=== PATIENT | female | born 1990 | race Caucasian/White ===

== ENCOUNTER 2020-07-04 21:56 | Emergency (ER) | payer MEDICAID, SELFPAY ==
[2020-07-04 23:02] VITALS: BP 171/94; PULSE 88; RESP 18; TEMP 36.6; O2SAT 100; BMI 36.0
[2020-07-04 23:26] VITALS: BP 155/75; PULSE 74; RESP 16; O2SAT 98
--- NOTE | 2020-07-04 23:35 | ED_ITS ---
History of Present Illness General Chief Complaint: Epistaxis Stated Complaint: nose bleed for 30 mins Time Seen by Provider: 07/04/20 23:26 Source: patient Mode of arrival: ambulatory Limitations: no limitations History of Present Illness HPI Narrative: L nares bleeding since 830pm wouldn't stop, no trauma, has hx of bleeding issues she was told she was hemophiliac but doesn't know her factor deficiency and hasn't received factor replacement in the past or during childbirth Location: Yes left naris Onset/current episode: Yes hour(s) (830pm) Duration: Yes intermittent Pertinent past history: Yes history of previous nose bleed and Yes history of heriditary bleeding disorder Context: Yes history of previous nose bleed Treatment prior to arrival: Yes nose pinching and Yes stuff nose with tissue Related Data Allergies Allergy/AdvReac Type Severity Reaction Status Date / Time aspirin AdvReac Unknown RASH Verified 07/04/20 23:02 [From ASPIRIN REGIMEN GARRETT/CALCIUM] Review of Systems Review of Systems: Constitutional : No Fever, No Chills ENT/Mouth : No Ear Pain, No Nasal Congestion, positive nose bleed Eyes: No Eye Pain, No Swelling, No Redness Cardiovascular : No Chest Pain, No SOB Respiratory : No Cough, No Sputum Gastrointestinal : No Nausea, No Vomiting, No Diarrhea Genitourinary : No Dysuria, No Hematuria Musculoskeletal : No joint pain, No Myalgias Skin : No Skin Lesions, No rash Neuro : No Weakness, No Numbness, No headache Psych : No Anxiety/Panic, No Depression Heme/Lymph: positive Bleeding,No Lymphadenopathy Endocrine : No Polyuria, No Polydipsia PMFSH Past Medical History Attestation statement: The following information was validated with the patient. Medical History (Updated 07/05/20 @ 00:29 by Ellen Unger DO) Asthma Hermansky-Pudlak syndrome Legally blind Social History Social History (Updated 07/04/20 @ 23:38 by Ellen Unger DO) Smoking Status: Never smoker Advance Directives: No Physical Exam Vital Signs: Vital Signs: Last Vital Signs Temp 97.9 F 07/04/20 23:02 Pulse 74 07/04/20 23:26 Resp 16 07/04/20 23:26 BP 155/75 H 07/04/20 23:26 Pulse Ox 98 07/04/20 23:26 Body Mass Index 36.0 Appearance: Alert. Oriented X3. No acute distress. Eyes: Pupils equal, round and reactive to light. ENT: Pharynx normal. no blood in pharynx, dried blood removed with clot of L nare no active bleeding noted but cracked area on anterior septum Neck: Normal inspection. Neck supple. CVS: Normal heart rate and rhythm. Pulses normal. Respiratory: No respiratory distress. Breath sounds normal. Abdomen: Soft and nontender. Skin: Skin warm and dry. Normal skin color. Normal skin turgor. Extremities: No lower extremity edema. No calf ttp Neuro: Oriented X 3. No motor deficit. No sensory deficit. Course Course Course Narrative: records from [facility] requested at the time of her delivery to confirm if she is hemophiliac - patient is not hemophiliac on recheck very scant ooze from anterior septum will apply silver nitrate to cau theodora Procedures Epistaxis Control Time Out Performed: Yes Nostril: Yes right Nose prepped with: Yes oxymetazoline Direct inspection: Yes anterior source identified Direct inspection method: Yes nasal speculum Clots removed by: Yes suction and Yes manually Epistaxis treatment: Yes silver nitrate cautery Results of treatment: Yes bleeding controlled Complications: Yes none MDM - Epistaxis MDM Narrative Medical decision making narrative: 29 yo female hermansky-pudlak syndrome and hx of bleeding, she initially stated she was hemophiliac but she doesn't know her factor deficiency and she has never received a factor replacement even during childbirth review of her notes here describe 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, will need labs, observation, apply afrin currently no bleeding noted Lab Data Result diagrams: 07/04/20 23:53 07/04/20 23:53 Labs: Lab Results 07/04/20 07/04/20 Range/Units 23:53 23:53 WBC 9.1 (4.8-10.8) X10*3/uL RBC 5.28 (4.20-5.50) X10*6/uL Hgb 14.5 (12.0-16.0) g/dl Hct 44.9 (37-47) % MCV 85.0 (80-98) fL MCH 27.5 (27.0-33.0) pg MCHC 32.3 (31.0-35.0) g/dl RDW 13.0 (11.0-16.0) % Plt Count 222 (160-400) X10*3/uL MPV 10.3 (9.4-12.3) fL Immature Gran % (Auto) 0.8 H (0.0-0.4) % Neut % (Auto) 50.7 (45-73) % Lymph % (Auto) 41.4 H (20-40) % [place] % (Auto) 5.8 (2-11) % Eos % (Auto) 1.0 (0-4) % Baso % (Auto) 0.3 (0-2) % Lymph # (Auto) 3.8 (1.2-4.9) X10*3/uL [place] # (Auto) 0.5 (0.1-1.2) X10*3/uL Eos # (Auto) 0.1 (0.0-0.4) X10*3/uL Baso # (Auto) 0.0 (0.0-0.2) X10*3/uL Abs Immat Gran (auto) 0.07 H (0.00-0.03) X10*3/uL Absolute Neuts (auto) 4.6 (2.0-8.3) X10*3/uL Absolute Nucleated RBC 0.000 (0.0-0.012) X10*3/uL Nucleated RBC % (auto) 0.0 (0.0-0.2) /100WBC PT 11.1 (10.8-13.0) SEC INR 0.9 (0.9-1.1) Discharge Plan Discharge Clinical Impression: Epistaxis Patient Disposition: Home, Self-Care Instructions: Nosebleed (ED), Potassium Nitrate/Silver Nitrate (On the skin) Additional Instructions: return to ED for any worsening symptoms or concerns DO NOT PICK YOUR NOSE OR BLOW YOUR NOSE X 3 DAYS Referrals: Geraldine Reyes MD [Primary Care Provider] - 2 days (if not better)
[2020-07-04] MEDS: Oxymetazoline HCl 0.05 % Nasal 15 ML SPRAY 2 SPRAY NOSTRIL-B (23:46)
[2020-07-05 00:02] LABS: Basophils Percent Auto 0.3 % (0-2); Eosinophils Absolute Auto 0.1 X10*3/uL (0.0-0.4); Hematocrit 44.9 % (37-47); Hemoglobin 14.5 g/dl (12.0-16.0); Imm Gran Abs Auto 0.07 X10*3/uL (0.00-0.03); Imm Gran Pct Auto 0.8 % (0.0-0.4); Lymphocytes Absolute Auto 3.8 X10*3/uL (1.2-4.9); Lymphocytes Percent Auto 41.4 % (20-40); MANUAL DIFF FLAG NO; Mean Corpuscular HGB Conc 32.3 g/dl (31.0-35.0); Mean Corpuscular Hemoglobin 27.5 pg (27.0-33.0); Mean Platelet Volume 10.3 fL (9.4-12.3); Monocytes Absolute Auto 0.5 X10*3/uL (0.1-1.2); Monocytes Percent Auto 5.8 % (2-11); Neutrophils Absolute Auto 4.6 X10*3/uL (2.0-8.3); Neutrophils Percent Auto 50.7 % (45-73); Platelet Count 222 X10*3/uL (160-400); Red Blood Count 5.28 X10*6/uL (4.20-5.50); White Blood Count 9.1 X10*3/uL (4.8-10.8)
[2020-07-05 00:10] LABS: INTERNATIONAL NORM RATIO 0.9 (0.9-1.1); Prothrombin Time 11.1 SEC (10.8-13.0)
[2020-07-05] MEDS: Silver Nitrate Applicator STICK..EA. 1 APPL TOPICAL (00:26)
[2020-07-05 00:30] LABS: Anion Gap 12 (12-20); Blood Urea Nitrogen 11 mg/dL (9-16); Carbon Dioxide 27 mmol/L (22-29); Chloride 106 mmol/L (96-108); Creatinine Clr Calc Pharmacy 119.7; Estimated Glomerular Filt Rate > 60; Glucose Random 111 mg/dL (60-115); Potassium 4.2 mmol/L (3.3-5.1); Sodium 141 mmol/L (135-145)
--- NOTE | 2020-07-05 00:30 | PC.NURSE ---
LEFT NARE CAUTERIZED BY DR HUI. NO FURTHER BLEEDING AT THIS TIME. WILL MONITOR.
[2020-07-05 00:51] VITALS: BP 139/82; PULSE 65; RESP 18; O2SAT 98
== END 2020-07-05 01:10 | disposition home or self-care (01) ==
PROVIDERS: Emergency Provider Emergency Medicine; PCP Internal Medicine
DX: R04.0 Epistaxis (principal); E70.331 Hermansky-Pudlak syndrome; J45.909 Unspecified asthma, uncomplicated
CPT/HCPCS: 36415; 80048; 85025; 85610; 99284

== ENCOUNTER 2020-11-19 21:36 | Emergency (ER) | payer MEDICAID, SELFPAY ==
[2020-11-19 22:02] VITALS: BP 151/105; PULSE 90; RESP 18; TEMP 37.1; O2SAT 98; BMI 39.3
--- NOTE | 2020-11-19 22:17 | ED_ITS ---
HPI - General Adult General Chief complaint: General Medical Stated complaint: sensation of ants Time Seen by Provider: 11/19/20 22:12 Source: patient Mode of arrival: ambulatory Limitations: no limitations History of Present Illness HPI narrative: hx of same in the past MD complaint: burning sensation on skin Onset (ago): day(s) (1 day) Location: head, face, chest, back, upper extremity and lower extremity Radiation: non-radiation Severity: moderate Quality: other (feels ants are crawling on her) Relieving factors: none Exacerbating factors: none Associated symptoms: denies other symptoms Treatments prior to arrival: none Related Data Previous Rx's Medication Instructions Recorded hydroxyzine HCl 50 mg PO Q8H PRN #30 tab 11/19/20 lorazepam [Ativan] 0.5 mg PO BID PRN #10 tab 11/19/20 Allergies Allergy/AdvReac Type Severity Reaction Status Date / Time aspirin AdvReac Unknown RASH Verified 11/19/20 22:02 [From ASPIRIN REGIMEN GARRETT/CALCIUM] Review of Systems Review of Systems: Constitutional : No Fever, No Chills, Cardiovascular : No Chest Pain, No SOB Respiratory : No Dyspnea Gastrointestinal : No abdominal pain Musculoskeletal : No Joint Swelling Skin : No rash, no skin laceration Neuro : No Weakness, No Numbness Psych : No SI/HI PMFSH Past Medical History Attestation statement: The following information was validated with the patient. Medical History Asthma Hermansky-Pudlak syndrome Legally blind Social History Social History (Updated 11/19/20 @ 22:28 by Ellen Unger DO) Patient Tobacco Use Status: Never used Tobacco Use of substances other than those prescribed or required for medical reasons: No Advance Directives: No Patient : No Physical Exam Vital Signs: Vital Signs: Last Vital Signs Temp 98.7 F 11/19/20 22:02 Pulse 90 11/19/20 22:02 Resp 18 11/19/20 22:02 BP 151/105 H 11/19/20 22:02 Pulse Ox 98 11/19/20 22:02 Body Mass Index 39.3 Appearance: Alert. Oriented X3. No acute distress. Eyes: nystagmus noted ENT: Pharynx normal. Neck: Normal inspection. Neck supple. CVS: Normal heart rate and rhythm. Pulses normal. Respiratory: No respiratory distress. Breath sounds normal. Abdomen: Soft and non-tender. Skin: Skin warm and dry. Normal skin color. Normal skin turgor. no rash Extremities: No lower extremity edema. No calf ttp Neuro: Oriented X 3. No motor deficit. No sensory deficit. Course Course Course Narrative: multiple rounds of medications including atarax, prednisone and ativan, patient with some relief, stable for DC. Medical Decision Making MDM Narrative Medical decision making narrative: 29 yo female with hx of asthma, hermansky- pudlak syndrome, legally blind here with feeling her skin is on fire, no rash seen, no drugs, no other symptoms has had this in the past and usually responds to benadryl but she didn't take any as it seemed much worse at this time, doubt drug use, no signs of rash no other complaints, GCS 15 will give atarax and reassess Discharge Plan Discharge Clinical Impression: Formication Patient Disposition: Home, Self-Care Instructions: Itchy Skin (ED) Additional Instructions: return to ED for any worsening symptoms or concerns Prescriptions: New hydroxyzine HCl 50 mg tablet 50 mg PO Q8H PRN (Reason: itching) Qty: 30 RF: 0 lorazepam [Ativan] 0.5 mg tablet 0.5 mg PO BID PRN (Reason: anxiety) Qty: 10 RF: 0 Referrals: Geraldine Reyes MD [Primary Care Provider] - 2 days
[2020-11-19] MEDS: hydrOXYzine HCL 50 MG TABLET PO (22:31)
[2020-11-19] MEDS: LORazepam 0.5 MG TABLET PO (23:11)
[2020-11-19] MEDS: predniSONE 20 MG TABLET 60 MG PO (23:51)
[2020-11-20] MEDS: LORazepam 1 MG TABLET PO (01:06)
--- NOTE | 2020-11-20 02:54 | PC.NURSE ---
ATTEMPTING TO GRAB THE PATIENT TO COME BACK TO A ROOM, PATIENT IS AT THE VENDING MACHINE, DIGGING COINS FROM THE CHANGE DISPENSER, THROWING THEM ONTO THE GROUND, AND KICKING THEM INTO THE BATHROOM TO PICK THEM UP. THIS NURSE CALLING HIS NAME AND THIS PATIENT RESPONDING. PATIENT UPSET AND YELLING AT THIS RN IN [place] FOR NOT FOLLOWING HIM INTO THE BATHROOM TO HEATING TECHNICIAN THE DROPPED CHANGE FOR HIM. PATIENT SITTING BACK DOWN IN THE WAITING ROOM AND CHARGING HIS PHONE. CHOOSING TO IGNORE THIS RN. ATTEMPTED TO CALL HIS NAME AGAIN AND ASK IF HE WANTS TO BE SEEN, PATIENT HUFFED AND WAVED THIS RN AWAY.
== END 2020-11-20 01:44 | disposition home or self-care (01) ==
PROVIDERS: Emergency Provider Emergency Medicine; PCP Internal Medicine
DX: R20.2 Paresthesia of skin (principal); E70.331 Hermansky-Pudlak syndrome
CPT/HCPCS: 99283

== ENCOUNTER 2020-12-13 11:42 | Outpatient (REF) | payer MEDICAID, SELFPAY ==
[2020-12-13 12:41] LABS: MANUAL DIFF FLAG NO
[2020-12-13 12:57] LABS: Basophils Percent Auto 0.3 % (0-2); Eosinophils Absolute Auto 0.1 X10*3/uL (0.0-0.4); Eosinophils Percent Auto 1.7 % (0-4); Hematocrit 48.3 % (37-47); Hemoglobin 15.7 g/dl (12.0-16.0); Imm Gran Abs Auto 0.03 X10*3/uL (0.00-0.03); Imm Gran Pct Auto 0.4 % (0.0-0.4); Lymphocytes Percent Auto 39.2 % (20-40); Mean Corpuscular HGB Conc 32.5 g/dl (31.0-35.0); Mean Corpuscular Hemoglobin 27.6 pg (27.0-33.0); Mean Corpuscular Volume 84.9 fL (80-98); Mean Platelet Volume 10.4 fL (9.4-12.3); Monocytes Absolute Auto 0.4 X10*3/uL (0.1-1.2); Monocytes Percent Auto 5.7 % (2-11); Neutrophils Percent Auto 52.7 % (45-73); Platelet Count 246 X10*3/uL (160-400); Red Blood Count 5.69 X10*6/uL (4.20-5.50); Red Cell Distribution Width 13.3 % (11.0-16.0); White Blood Count 7.6 X10*3/uL (4.8-10.8)
[2020-12-13 13:10] LABS: Alanine Aminotransferase 17 U/L (0-31); Albumin Level 4.2 g/dL (3.5-5.0); Alkaline Phosphatase 83 U/L (39-117); Anion Gap 13 (12-20); Aspartate Amino Transferase 16 U/L (5-31); Bilirubin Total 0.4 mg/dL (0.0-1.0); Blood Urea Nitrogen 8 mg/dL (9-16); Calcium 9.1 mg/dL (8.4-10.2); Carbon Dioxide 24 mmol/L (22-29); Chloride 109 mmol/L (96-108); Estimated Glomerular Filt Rate > 60; Glucose Random 97 mg/dL (60-115); Potassium 3.5 mmol/L (3.3-5.1); Sodium 142 mmol/L (135-145); Total Protein 7.7 g/dL (6.5-8.0)
[2020-12-13 13:31] LABS: Thyroid Stimulating Hormone 1.96 uIU/mL (0.32-4.0)
== END 2020-12-13 11:43 | disposition home or self-care (01) ==
LOC: HO.LAB 11:42
PROVIDERS: PCP Internal Medicine; Visit Provider Internal Medicine
DX: E70.331 Hermansky-Pudlak syndrome (principal); F33.42 Major depressive disorder, recurrent, in full remission; L29.8 Other pruritus
CPT/HCPCS: 36415; 80053; 84443; 85025

== ENCOUNTER → 2021-04-10 09:52 | Outpatient (BNVA) | payer MEDICAID, SELFPAY | PROVIDERS: PCP Internal Medicine; Referring Provider Internal Medicine; Visit Provider Surgery | DX: L72.9 Follicular cyst of the skin and subcutaneous tissue, unspecified (principal) | CPT/HCPCS: 99202 ==

== ENCOUNTER 2021-05-01 07:53 | Outpatient (REF) | payer MEDICAID, SELFPAY ==
[2021-05-01 08:04] VITALS: BP 160/86; PULSE 67; RESP 20; TEMP 36.4; O2SAT 100
[2021-05-01 08:05] VITALS: BMI 42.2
--- NOTE | 2021-05-01 08:24 | W.PM.OPN ---
Operative Note Operative Note Date of Service: 05/01/21 Narrative: Preop diagnosis: scalp cyst Postop diagnosis: Scalp cyst Procedure: Excision of scalp cyst under local anesthesia Surgeon: Reji Short MD The patient is a 30-year-old female with note of a up cyst, measuring about 1 cm in diameter. This was on the frontoparietal area. She wanted this removed. She understood the technique of excision under local anesthesia. She was aware of the risks, benefits, and alternatives . She was brought to the minor procedure room and placed supine in a reclined position. The area of the cyst was prepped and draped. Lidocaine 1% was used for local anesthesia. Surgical time-out had been done . I made an incision in the skin overlying the cyst using blade 15. And this was carried down through the full-thickness of skin and part of subcutaneous layer until the mass was visualized. I sharply dissected the mass off of the rest of subcutaneous layer circumferentially until this was delivered and sent as a specimen. This was a surgical thick mass measuring about 1 cm in diameter . I closed the incision with full-thickness nylon 3-0 interrupted sutures. bacitracin dressings were applied. The procedure was then completed . The patient tolerated procedure well. There were no complications noted. Estimated blood loss was about cc . The patient was given wound care instructions.
== END 2021-05-01 07:54 | disposition home or self-care (01) ==
LOC: HO.MS 07:53
PROVIDERS: PCP Internal Medicine; Visit Provider Surgery
PROC: (CPT 11421; principal; 2021-05-01 08:00)
DX: L72.12 Trichodermal cyst (principal)
CPT/HCPCS: 11421; 88304

== ENCOUNTER 2021-05-01 12:37 | Outpatient (REF) | payer MEDICAID, SELFPAY | END 2021-05-01 12:38 | disposition home or self-care (01) | LOC: HO.HMGCLDS 12:37 | PROVIDERS: Visit Provider Internal Medicine | DX: Z20.822 Contact with and (suspected) exposure to COVID-19 (principal) | CPT/HCPCS: C9803; U0003; U0005 ==

== ENCOUNTER → 2021-05-15 09:49 | Outpatient (BNVA) | payer MEDICAID, SELFPAY | PROVIDERS: PCP Internal Medicine; Referring Provider Internal Medicine; Visit Provider Surgery | DX: Z48.817 Encounter for surgical aftercare following surgery on the skin and subcutaneous tissue (principal); Z87.2 Personal history of diseases of the skin and subcutaneous tissue | CPT/HCPCS: 99212 ==

== ENCOUNTER → 2022-05-08 13:53 | Outpatient (BNVA) | payer MEDICAID, SELFPAY | PROVIDERS: PCP Internal Medicine; Visit Provider Orthopaedic Surgery | DX: R20.0 Anesthesia of skin (principal); M24.2 Disorder of ligament | CPT/HCPCS: 99202 ==

== ENCOUNTER 2022-09-08 16:52 | Emergency (ER) | payer MEDICAID, SELFPAY ==
--- NOTE | ~2022-09-08 | CT_ITS ---
EXAMINATION: CT ORBIT WITH CONTRAST CLINICAL INFORMATION: Pain and redness of eye. COMPARISON: None available. TECHNIQUE: Multidetector CT imaging of the orbits was performed after the administration of 90 mL Omnipaque 350 intravenous contrast. without the use of intravenous contrast. Coronal and sagittal reformats created on an independent workstation were reviewed. This CT examination was performed using dose optimization techniques as appropriate, variously including the following: *Automated exposure control *Adjustment of mA and/or kV according to patient size (this includes techniques or standardized protocols for targeted exams where dose is matched to indication/reason for exam; i.e. extremities or head) *Use of iterative reconstruction technique DLP: 191 mGy-cm FINDINGS: Globes are normal in appearance. Orbits unremarkable. No post septal inflammatory changes or collections. Mild conjunctival hyperemia bilaterally. Regional soft tissue structures unremarkable. Imaged brain parenchyma is normal. Paranasal sinuses and mastoid air cells are clear. CT/CT orbit BI w IV con IMPRESSION: * Mild bilateral conjunctival hyperemia. * No post septal inflammatory changes or collections.
[2022-09-08 17:08] VITALS: BP 141/79; PULSE 84; RESP 18; TEMP 36.3; O2SAT 98; BMI 43.7
--- NOTE | 2022-09-08 17:09 | ED_ITS ---
HPI - General Adult General Chief complaint: Eye Problems Stated complaint: Right eye red/hurts to move Time Seen by Provider: 09/08/22 17:15 Source: patient Mode of arrival: ambulatory Limitations: no limitations History of Present Illness HPI narrative: 29 yo female with? hx of asthma, hermansky-pudlak syndrome, legally blind here with complaints of 2-3 days of a painful right eye with pain behind the eye on the right side of the head. Patient reports light sensitivity in the right eye but this is baseline for her. Patient is legally blind at baseline and only sees shadows. Patient denies any itching of the eye, drainage from the eye, crusting of the eye. Patient denies any recent cough or cold symptoms. Patient denies fevers or chills. Patient reports this morning her family noticed that her eye was red which prompted her to come into the emergency room. Patient does have history of migraines but feels this is different. Patient denies any known injury or trauma to the eye. Patient reports when she moves her eye from right to left she has pain Related Data Home Medications Medication Instructions Recorded Confirmed cetirizine 10 mg tablet 10 mg PO DAILY 04/10/21 fluticasone propionate 50 1 spray intranasal BID 04/10/21 mcg/actuation nasal spray,suspension sertraline 50 mg tablet 50 mg PO DAILY 04/10/21 Previous Rx's Medication Instructions Recorded hydroxyzine HCl 50 mg tablet 50 mg PO Q8H PRN itching #30 tabs 11/19/20 lorazepam 0.5 mg tablet (Ativan) 0.5 mg PO BID PRN anxiety #10 tabs 11/19/20 hmitswghym-hkmkkbqyzfcsl-saxqpwwv 1 cap PO Q6H PRN headache #20 caps 09/08/22 50 mg-300 mg-40 mg capsule (Fioricet) tobramycin 0.3 % eye drops 2 drp ophthalmic-Right Q4H #5 mL 09/08/22 Allergies Allergy/AdvReac Type Severity Reaction Status Date / Time aspirin AdvReac Unknown RASH Verified 09/08/22 17:13 [From ASPIRIN REGIMEN GARRETT/CALCIUM] Review of Systems Review of Systems: Yes all other systems are reviewed and are negative Constitutional: Constitutional: Reports no additional constitutional complaints, Denies body ache(s), Denies chills, Denies fever(s), Reports heada matthias(s) and Denies weakness Eyes: Eyes: Reports no additional eye complaints, Denies change in vision, Denies eye discharge, Denies irritation, Denies itchy eyes, Reports eye pain and Reports photophobia ENT: Reports system reviewed and no additional complaints, except as documented, Denies dizziness, Reports headache(s), Denies nasal congestion, Denies nasal discharge and Denies neck pain Cardiovascular: Cardiovascular: Reports no additional cardiovascular c omplaints, Denies chest pain, Denies leg edema and Denies dyspnea Respiratory: Respiratory: Reports no additional respiratory complaints, Denies cough and Denies dyspnea Gastrointestinal: Gastrointestinal: Reports no additional gastrointestinal complaints, Denies abdominal pain, Denies diarrhea, Denies nausea and Denies vomiting Genitourinary: Genitourinary: Reports no additional female genitourinary complaints and Denies urinary incontinence Musculoskeletal: Musculoskeletal: Reports no additional musculoskeletal complaints, Denies back pain, Denies arthralgias, Denies joint swelling, Denies neck pain, Denies numbness and Denies tingling Integumentary/Breasts: Skin/Breast: Reports system reviewed and no additional complaints, except as docu and Denies rash Neurologic: Reports system reviewed and no additional complaints, except as documented, Denies dizziness, Reports headache(s), Denies numbness, Denies tingling and Denies weakness Allergic/Immunologic: Allergic/Immunologic: Denies itchy eyes PMFSH Past Medical History Attestation statement: The following information was validated with the patient. Source: old records reviewed and nursing notes reviewed Medical History Asthma Hermansky-Pudlak syndrome Legally blind Scalp cyst Social History Social History Alcohol intake: never Patient Tobacco Use Status: Never used Tobacco Smoked in Last 30 Days: No Use of substances other than those prescribed or required for medical reasons: No Advance Directives: No Advance Directives Information Provided: No Current occupational status: disabled Current occupation: rt hand Physical Exam ED Vital Signs: Vital Signs - 24 hr 09/08/22 17:08 09/08/22 21:30 Temperature 97.3 F 98 F Pulse Rate 84 65 Respiratory Rate 18 16 Blood Pressure 141/79 H 120/72 Pulse Oximetry 98 98 Oxygen Delivery Method Room Air Room Air BMI result Body Mass Index 43.7 Const General: cooperative, healthy appearing, comfortable and no acute distress Orientation/consciousness: patient oriented x3 Limitations: no limitations HENMT Head: Yes normal to inspection Ears: hearing grossly normal bilaterally and TM's normal bilaterally General nose exam: Normal external nose present Face and sinus: Yes normal facial exam Mouth: Normal oral and palatal mucosa present Throat: Yes posterior oropharynx normal, Yes tonsils normal and Yes uvula midline Eyes Other: Patient is legally blind at baseline. Unable to assess visual haines Patient has nystagmus at baseline bilaterally Patient's pupils are 3 mm and nonreactive bilaterally Patient unable to perform EOM due to baseline nystagmus. She does have pain when I open her eyelid and her eye moves from left to right Pressures right eye are 17 Pressures left eye 24 Periorbital: periorbital findings normal Eyelids: Yes eyelids normal Conjunctivae: conjunctival abnormal (Right conjunctival injection, erythema) Sclerae: sclerae normal Corneas: corneas normal and fluorescein used (No corneal foreign body or abrasion) Direct Ophthalmoscopy: photophobia Neck Neck: Yes normal visual inspection, Yes full ROM and Yes no lymphadenopathy Chest Chest palpation & inspection: normal inspection of the chest Resp Effort & Inspection: normal respiratory effort Auscultation: clear to auscultation bilaterally Cardio Rate: regular rate Rhythm: regular rhythm Peripheral pulses: Peripheral pulses 2+ throughout GI Inspection: Yes normal to inspection Palpation (GI): Soft to palpation and nontender General: Yes no CVA tenderness Back/Spine/Pelvis Back: no CVA tenderness Thoracic/Lumbar Spine: thoracic and lumbar spine normal to inspection Skin General skin exam: no rashes or lesions noted Neuro General: patient oriented x3 and moves all extremities Cranial nerves: Yes Normal facial strength present and Yes Midline tongue present Cognition (Neuro): normal cognition Gait exam (Neuro): Normal gait present Motor exam (neuro): 5/5 motor strength present throughout Sensory Exam: Normal double simultaneous stimulation for sensation Course Course Course Narrative: 31 year old female born with visual impairment presents for evaluation of right eye redness and pain. Patient can see shadows only. No change to her vision. Denies any trauma to the eye. She reports headache only on the right side and pain with movement of the right eye. Conjunctiva is injected. Patient has nystagmus at baseline bilaterally. symptoms started 2 days ago. Patient follows with Dr Nazario. ? glaucoma Reevaluation(s) Reevaluation #1: [id number] out to Dr Vargas pending labs, CT and re-evaluation Medications Administered Discontinued Medications Generic Name Dose Route Start Last Admin Trade Name Collette PRN Reason Stop Dose Admin Fluorescein Sodium 1 strip 09/08/22 17:18 09/08/22 17:31 Fluorescein Sodium Strip EYE-RIGHT 09/08/22 17:19 1 strip ONCE ONE Administration Sodium Chloride 1,000 mls @ 999 mls/hr 09/08/22 17:53 09/08/22 19:54 Ns IV 09/08/22 18:53 Infused .Q1H1M STA Infusion Iohexol 100 ml 09/08/22 19:45 09/08/22 19:45 Iohexol 350 Mg/Ml 100 Ml Infus..Btl IV 09/08/22 19:46 85 ml ONCE ONE Administration Ketorolac Tromethamine 30 mg 09/08/22 21:08 09/08/22 21:21 Ketorolac Tromethamine 30 Mg/Ml Vial IVPUSH 09/08/22 21:09 30 mg ONCE ONE Administration Morphine Sulfate 4 mg 09/08/22 17:53 09/08/22 18:42 Morphine Sulfate 4 Mg/Ml Cartridge IVPUSH 09/08/22 17:54 4 mg ONCE ONE Administration Protocol Ondansetron HCl 4 mg 09/08/22 17:53 09/08/22 18:42 Ondansetron Hcl 4 Mg/2 Ml Vial IVPUSH 09/08/22 17:54 4 mg ONCE ONE Administration Tetracaine HCl 1 drop 09/08/22 17:18 09/08/22 17:31 Tetracaine Hcl/Pf 0.5% Oph Iza 4 Ml Drops EYE-RIGHT 09/08/22 17:19 1 drop ONCE ONE Administration Tobramycin Sulfate 2 drop 09/08/22 21:08 09/08/22 21:21 Tobramycin Sulfate 0.3% Iza Op 5 Ml Btl EYE-RIGHT 09/08/22 21:09 2 drop ONCE ONE Administration Medical Decision Making Medical Decision Making MDM Narrative: 31-year-old female with a history of asthma, hermansky-pudlak syndrome, legally blind here with complaints of 2-3 days of right eye pain both within the eye and behind the eye radiating to the right side of the head, with pain with eye movement and redness noted today. On arrival normal neuro exam VSS Eye exam is limited as patient as significant baseline visual deficit, non reactive pupil, nystagmus which makes assessing EOM difficult. There is increased uptake with fluoroscein on exam with no obvoious FB or abrasi on. Normal IOP bilaterally. Unable to assess anterior chamber. D/w attending physician (Dr Vargas). D/t limited eye exam, eye pain/headache, pain with eye movement consider orbital cellulitis however no periorbital findings on exam/chemosis/proctosis/fever. Will obtain CT orbit with IV contrast, labs. Provide analgesia and re-assess. Patient's CT scan negative for any acute intra-ocular pathology labs are stable with no signs of infection. On examination patient does not have signs of orbital cellulitis has conjunctival injection full range of pain less EOMI. Fundus examination revealed red reflex with anterior chamber normal patient's symptoms likely from complex migraine with conjunctivitis discharge patient home on Fioricet and tobramycin eye drops Differential Diagnosis Differential Diagnoses: The differential diagnosis associated with the presentation includes Orbital cellulitis, acute glaucoma, corneal abrasions/foreign body, conjunctivitis Lab Data MDM Lab Attestation statement: I reviewed the patient's lab results. 09/08/22 18:34 09/08/22 18:34 Labs: Lab Results 09/08/22 09/08/22 09/08/22 Range/Units 18:34 18:34 18:34 WBC 9.7 (4.8-10.8) X10*3/uL RBC 5.43 (4.20-5.50) X10*6/uL Hgb 14.8 (12.0-16.0) g/dl Hct 46.2 (37.0-47.0) % MCV 85.1 (80.0-98.0) fL MCH 27.3 (27.0-33.0) pg MCHC 32.0 (31.0-35.0) g/dl RDW 13.5 (11.0-16.0) % Plt Count 278 (160-400) X10*3/uL MPV 10.3 (9.4-12.3) fL Immature Gran % (Auto) 0.5 H (0.0-0.4) % Neut % (Auto) 61.7 (45-73) % Lymph % (Auto) 30.5 (20-40) % [place] % (Auto) 5.7 (2-11) % Eos % (Auto) 1.2 (0-4) % Baso % (Auto) 0.4 (0-2) % Lymph # (Auto) 3.0 (1.2-4.9) X10*3/uL [place] # (Auto) 0.6 (0.1-1.2) X10*3/uL Eos # (Auto) 0.1 (0.0-0.4) X10*3/uL Baso # (Auto) 0.0 (0.0-0.2) X10*3/uL Abs Immat Gran (auto) 0.05 H (0.00-0.03) X10*3/uL Absolute Neuts (auto) 6.0 (2.0-8.3) x10*3/uL Absolute Nucleated RBC 0.000 (0.0-0.012) X10*3/uL Nucleated RBC % (auto) 0.0 (0.0-0.2) /100WBC ESR 14 (0-20) MM/HR Sodium 143 (135-145) mmol/L Potassium 3.9 (3.3-5.1) mmol/L Chloride 108 (96-108) mmol/L Carbon Dioxide 26 (22-29) mmol/L Anion Gap 13 (12-20) BUN 10 (9-16) mg/dL Creatinine 0.81 (0.5-1.4) mg/dL Estim Creat Clear Calc 114.3 Estimated GFR > 60 Random Glucose 93 (60-115) mg/dL Calcium 9.0 (8.4-10.2) mg/dL Total Bilirubin 0.4 (0.0-1.0) mg/dL Direct Bilirubin 0.1 (0.0-0.5) mg/dL AST 16 (5-31) U/L ALT 16 (0-31) U/L Alkaline Phosphatase 73 (39-117) U/L C-Reactive Protein 0.40 (< or = 0.50) mg/dL Total Protein 7.5 (6.5-8.0) g/dL Albumin 4.3 (3.5-5.0) g/dL Beta HCG, Quant mIU/mL 09/08/22 Range/Units 18:34 WBC (4.8-10.8) X10*3/uL RBC (4.20-5.50) X10*6/uL Hgb (12.0-16.0) g/dl Hct (37.0-47.0) % MCV (80.0-98.0) fL MCH (27.0-33.0) pg MCHC (31.0-35.0) g/dl RDW (11.0-16.0) % Plt Count (160-400) X10*3/uL MPV (9.4-12.3) fL Immature Gran % (Auto) (0.0-0.4) % Neut % (Auto) (45-73) % Lymph % (Auto) (20-40) % [place] % (Auto) (2-11) % Eos % (Auto) (0-4) % Baso % (Auto) (0-2) % Lymph # (Auto) (1.2-4.9) X10*3/uL [place] # (Auto) (0.1-1.2) X10*3/uL Eos # (Auto) (0.0-0.4) X10*3/uL Baso # (Auto) (0.0-0.2) X10*3/uL Abs Immat Gran (auto) (0.00-0.03) X10*3/uL Absolute Neuts (auto) (2.0-8.3) x10*3/uL Absolute Nucleated RBC (0.0-0.012) X10*3/uL Nucleated RBC % (auto) (0.0-0.2) /100WBC ESR (0-20) MM/HR Sodium (135-145) mmol/L Potassium (3.3-5.1) mmol/L Chloride (96-108) mmol/L Carbon Dioxide (22-29) mmol/L Anion Gap (12-20) BUN (9-16) mg/dL Creatinine (0.5-1.4) mg/dL Estim Creat Clear Calc Estimated GFR Random Glucose (60-115) mg/dL Calcium (8.4-10.2) mg/dL Total Bilirubin (0.0-1.0) mg/dL Direct Bilirubin (0.0-0.5) mg/dL AST (5-31) U/L ALT (0-31) U/L Alkaline Phosphatase (39-117) U/L C-Reactive Protein (< or = 0.50) mg/dL Total Protein (6.5-8.0) g/dL Albumin (3.5-5.0) g/dL Beta HCG, Quant < 2 mIU/mL Discharge Plan Discharge Clinical Impression: Acute conjunctivitis, right eye, Migraine Patient Disposition: Home, Self-Care Instructions: Migraine Headache (ED), Conjunctivitis (ED) Additional Instructions: Use the tobramycin eyedrops as provided 2 drops every 4 hour till clear Fioricet for headache follow-up with PCP Prescriptions: New oktbstqssq-xdlcxazeieaki-kifg [Fioricet] 50-300-40 mg capsule 1 cap PO Q6H PRN (Reason: headache) Qty: 20 0RF tobramycin 0.3 % drops 2 drp ophthalmic-Right Q4H Qty: 5 0RF No Action hydroxyzine HCl 50 mg tablet 50 mg PO Q8H PRN (Reason: itching) Qty: 30 0RF lorazepam [Ativan] 0.5 mg tablet 0.5 mg PO BID PRN (Reason: anxiety) Qty: 10 0RF fluticasone propionate 50 mcg/actuation spray,suspension 1 spray intranasal BID sertraline 50 mg tablet 50 mg PO DAILY cetirizine 10 mg tablet 10 mg PO DAILY Referrals: Subhash Nazario [Physician] -
[2022-09-08] MEDS: Fluorescein Sodium STRIP 1 STRIP EYE-RIGHT (17:31)
[2022-09-08] MEDS: Tetracaine HCl/PF 0.5% Oph Sol 4 ML DROPS 1 DROP EYE-RIGHT (17:31)
--- NOTE | 2022-09-08 18:13 | PC.NURSE ---
Patient presenting with eye pain that wraps around her head. Patient states that her eye has been red for a few days but this morning she woke with the pain. Patient is legally blind and is only able to see shadows. Patient is able to move independently without issue. Right eye is red upon inspection.
[2022-09-08 18:42] LABS: MANUAL DIFF FLAG NO
[2022-09-08] MEDS: 0.9 % Sodium Chloride 1,000 ML 999 ML IV (18:42)
[2022-09-08] MEDS: Morphine Sulfate 4 MG/ML CARTRIDGE IVPUSH (18:42)
[2022-09-08] MEDS: ondansetron HCL 4 MG/2 ML VIAL IVPUSH (18:42)
[2022-09-08 18:45] LABS: Basophils Percent Auto 0.4 % (0-2); Eosinophils Absolute Auto 0.1 X10*3/uL (0.0-0.4); Eosinophils Percent Auto 1.2 % (0-4); Hematocrit 46.2 % (37.0-47.0); Hemoglobin 14.8 g/dl (12.0-16.0); Imm Gran Abs Auto 0.05 X10*3/uL (0.00-0.03); Imm Gran Pct Auto 0.5 % (0.0-0.4); Lymphocytes Percent Auto 30.5 % (20-40); Mean Corpuscular Hemoglobin 27.3 pg (27.0-33.0); Mean Corpuscular Volume 85.1 fL (80.0-98.0); Mean Platelet Volume 10.3 fL (9.4-12.3); Monocytes Absolute Auto 0.6 X10*3/uL (0.1-1.2); Monocytes Percent Auto 5.7 % (2-11); Neutrophils Percent Auto 61.7 % (45-73); Platelet Count 278 X10*3/uL (160-400); Red Blood Count 5.43 X10*6/uL (4.20-5.50); Red Cell Distribution Width 13.5 % (11.0-16.0); White Blood Count 9.7 X10*3/uL (4.8-10.8)
--- NOTE | 2022-09-08 18:49 | PC.NURSE ---
IV obtained and patient given IV medications per MAR.
[2022-09-08 19:01] LABS: Alanine Aminotransferase 16 U/L (0-31); Albumin Level 4.3 g/dL (3.5-5.0); Alkaline Phosphatase 73 U/L (39-117); Anion Gap 13 (12-20); Aspartate Amino Transferase 16 U/L (5-31); Bilirubin Direct 0.1 mg/dL (0.0-0.5); Bilirubin Total 0.4 mg/dL (0.0-1.0); Blood Urea Nitrogen 10 mg/dL (9-16); Carbon Dioxide 26 mmol/L (22-29); Chloride 108 mmol/L (96-108); Creatinine Clr Calc Pharmacy 114.3; Estimated Glomerular Filt Rate > 60; Glucose Random 93 mg/dL (60-115); Potassium 3.9 mmol/L (3.3-5.1); Sodium 143 mmol/L (135-145); Total Protein 7.5 g/dL (6.5-8.0)
[2022-09-08 19:20] LABS: HCG Quantitative < 2 mIU/mL
[2022-09-08 19:35] LABS: Erythrocyte Sedimentation Rate 14 MM/HR (0-20)
[2022-09-08] MEDS: iohexoL 350 MG/ML 100 ML INFUS..BTL IV (19:45)
--- NOTE | 2022-09-08 19:54 | PC.NURSE ---
Pt resting in bed, stated her pain is a 4/10, complaining of pressure.
[2022-09-08] MEDS: Ketorolac Tromethamine 30 MG/ML VIAL IVPUSH (21:21)
[2022-09-08] MEDS: Tobramycin Sulfate 0.3% Sol Op 5 ML BTL 2 DROP EYE-RIGHT (21:21)
[2022-09-08 21:30] VITALS: BP 120/72; PULSE 65; RESP 16; TEMP 36.6; O2SAT 98
== END 2022-09-08 23:16 | disposition home or self-care (01) ==
PROVIDERS: Nurse Practitioner Family; Emergency Provider Internal Medicine; PCP Internal Medicine
DX: H10.31 Unspecified acute conjunctivitis, right eye (principal); G43.909 Migraine, unspecified, not intractable, without status migrainosus; H54.8 Legal blindness, as defined in USA; Z79.899 Other long term (current) drug therapy
CPT/HCPCS: 36415; 70481; 80048; 80076; 84702; 85025; 85652; 86140; 96361; 96374; 96375; 99284; J1885; J2270; J2405; Q9967

== ENCOUNTER 2022-12-19 09:24 | Outpatient (REF) | payer MEDICAID, SELFPAY ==
[2022-12-19 09:47] LABS: MANUAL DIFF FLAG NO
[2022-12-19 10:00] LABS: Basophils Percent Auto 0.4 % (0-2); Eosinophils Absolute Auto 0.2 X10*3/uL (0.0-0.4); Eosinophils Percent Auto 2.1 % (0-4); Hematocrit 46.9 % (37.0-47.0); Hemoglobin 15.1 g/dl (12.0-16.0); Imm Gran Abs Auto 0.07 X10*3/uL (0.00-0.03); Imm Gran Pct Auto 0.7 % (0.0-0.4); Lymphocytes Absolute Auto 3.4 X10*3/uL (1.2-4.9); Lymphocytes Percent Auto 35.8 % (20-40); Mean Corpuscular HGB Conc 32.2 g/dl (31.0-35.0); Mean Corpuscular Volume 83.8 fL (80.0-98.0); Mean Platelet Volume 10.5 fL (9.4-12.3); Monocytes Absolute Auto 0.6 X10*3/uL (0.1-1.2); Neutrophils Absolute Auto 5.3 x10*3/uL (2.0-8.3); Platelet Count 259 X10*3/uL (160-400); Red Cell Distribution Width 13.1 % (11.0-16.0); White Blood Count 9.6 X10*3/uL (4.8-10.8)
[2022-12-19 10:23] LABS: Estimated Average Glucose 103 mg/dL; Hemoglobin A1c % 5.2 % (<6.0)
[2022-12-19 10:41] LABS: Alanine Aminotransferase 19 U/L (0-31); Albumin Level 4.5 g/dL (3.5-5.0); Alkaline Phosphatase 78 U/L (39-117); Anion Gap 13 (12-20); Aspartate Amino Transferase 17 U/L (5-31); Bilirubin Total 0.3 mg/dL (0.0-1.0); Blood Urea Nitrogen 10 mg/dL (9-16); Calcium 9.8 mg/dL (8.4-10.2); Carbon Dioxide 24 mmol/L (22-29); Chloride 107 mmol/L (96-108); Cholesterol 217 mg/dL (<200); Estimated Glomerular Filt Rate > 60; Glucose Random 96 mg/dL (60-115); HDL Cholesterol 46 mg/dL (>40); LDL Cholesterol Calculated 143 mg/dL (<100); Potassium 3.1 mmol/L (3.3-5.1); Sodium 141 mmol/L (135-145); Total Protein 8.7 g/dL (6.5-8.0); Triglycerides 142 mg/dL (<150)
[2022-12-19 10:59] LABS: Thyroid Stimulating Hormone 2.41 uIU/mL (0.32-4.0)
== END 2022-12-19 09:25 | disposition home or self-care (01) ==
LOC: HO.LAB 09:24
PROVIDERS: PCP Internal Medicine; Visit Provider Internal Medicine
DX: Z00.00 Encounter for general adult medical examination without abnormal findings (principal); E66.01 Morbid (severe) obesity due to excess calories; F32.5 Major depressive disorder, single episode, in full remission; I10 Essential (primary) hypertension; J30.0 Vasomotor rhinitis; M54.89 Other dorsalgia
CPT/HCPCS: 36415; 80053; 80061; 83036; 84443; 85025

== ENCOUNTER 2023-08-20 20:15 | Emergency (ER) | payer MEDICAID, SELFPAY ==
[2023-08-20 20:37] VITALS: BP 148/96; PULSE 101; RESP 16; TEMP 37.3; O2SAT 99; BMI 37.0
--- NOTE | 2023-08-20 20:37 | ED.GENADULT ---
HPI - General Adult General Chief complaint: General Medical Stated complaint: sore throat Time Seen by Provider: 08/20/23 22:29 Source: patient and family Mode of arrival: ambulatory History of Present Illness HPI narrative: 32-year-old female with presentation of sore throat, cough and congestion as well as subjective fevers that started on Saturday. Patient also reports a foul smell to her urine and has concerns about possible . Related Data Home Medications ?Medication ?Instructions ?Recorded ?Confirmed cetirizine 10 mg tablet 10 mg PO DAILY 04/10/21 fluticasone propionate 50 1 spray intranasal BID 04/10/21 mcg/actuation nasal spray,suspension sertraline 50 mg tablet 50 mg PO DAILY 04/10/21 Previous Rx's ?Medication ?Instructions ?Recorded hydroxyzine HCl 50 mg tablet 50 mg PO Q8H PRN itching #30 tabs 11/19/20 lorazepam 0.5 mg tablet (Ativan) 0.5 mg PO BID PRN anxiety #10 tabs 11/19/20 bhgjnnefrr-neltclzdraboa-lgagzttr 1 cap PO Q6H PRN headache #20 caps 09/08/22 50 mg-300 mg-40 mg capsule (Fioricet) tobramycin 0.3 % eye drops 2 drp ophthalmic-Right Q4H #5 mL 09/08/22 oseltamivir 75 mg capsule (Tamiflu) 75 mg PO BID 5 days #10 caps 08/20/23 Allergies Allergy/AdvReac Type Severity Reaction Status Date / Time aspirin AdvReac Unknown RASH Verified 08/20/23 20:38 [From ASPIRIN REGIMEN GARRETT/CALCIUM] Review of Systems Review of Systems: Pertinent positives and negatives as stated in HPI [facility] Past Medical History Source: nursing notes reviewed Medical History Scalp cyst Asthma Legally blind Hermansky-Pudlak syndrome Social History Social History Alcohol intake: never Patient Tobacco Use Status: Never used Tobacco Advance Directives: No Advance Directives Information Provided: No Do you have a plan to hurt others: No Plan Current occupational status: disabled Current occupation: rt hand Physical Exam ED Vital Signs: Vital Signs - 24 hr 08/20/23 20:37 Temperature 99.1 F Pulse Rate 101 H Respiratory Rate 16 Blood Pressure 148/96 H Pulse Oximetry 99 Oxygen Delivery Method Room Air BMI result Body Mass Index 37.0 VITAL SIGNS: Reviewed. GENERAL: Well developed, well nourished, in no acute distress. HEAD: Normocephalic/atraumatic EYES: PERRLA, EOMI EARS: Ext canals without abnormality, TMs non-bulging and non-erythematous NOSE: Nares patent bilateral OROPHARYNX: no oral lesions noted, posterior pharynx clear and non-erythematous without noted tonsillar enlargement/erythema/exudates NECK: Supple, no adenopathy LUNGS: Normal breath sounds. No adventitious sounds or accessory muscle use. SpO2<99> CARDIOVASCULAR: Regular rate and rhythm without noted murmurs ABDOMEN: Soft, non-tender, non-distended with bowel sounds. MUSCULOSKELETAL: No tenderness, deformities, or effusions noted on gross inspection. EXTREMITIES: No cyanosis, clubbing or edema. SKIN: Inspection of the skin reveals no rashes NEUROLOGIC: Alert and oriented x 4. Strength and sensation to light touch were grossly intact x 4. Course Course Course Narrative: This is an RME: Additional HPI, ROS, PE not included below will be deferred to primary provider. This is a 32-year-old female, w a hx of asthma, hermansky-pudlak syndrome, legally blind here with complaints headache, body aches, fevers, cough and ST x 2 days. Been taking robitussin and tylenol w/o relief. Plan: Viral swabs Medications Administered Discontinued Medications Generic Name Dose Route Start Last Admin Trade Name Freq PRN Reason Stop Dose Admin Acetaminophen 975 mg 08/20/23 22:31 08/20/23 23:25 Acetaminophen 325 Mg Tablet PO 08/20/23 22:32 975 mg ONCE ONE Administration Oseltamivir Phosphate 75 mg 08/20/23 22:30 08/20/23 23:25 Oseltamivir Phosphate 75 Mg Capsule PO 08/20/23 22:31 75 mg ONCE ONE Administration Medical Decision Making Medical Decision Making [facility] Narrative: 32-year-old female with history and clinical presentation, DDX: Urine , viral syndrome, UTI. I reviewed all investigations and viral testing demonstrates positivity for influenza B, patient received combination analgesics as well as initial dose of Tamiflu and is otherwise discharged home. Urinalysis is negative for UTI and urine . Differential Diagnosis Differential Diagnoses: The differential diagnosis associated with the presentation includes Please see the discussion above Admission/Observation Consideration of admission/observation: Escalation of care including admission/observation considered Please see the discussion above Lab Data MDM Lab Attestation statement: I reviewed the patient's lab results. Please see the discussion above Labs: Lab Results 08/20/23 08/20/23 Range/Units 20:56 23:31 Urine Color Dark Yellow Urine Appearance Turbid Urine pH 5.0 (5.0-9.0) Ur Specific [place] 1.020 (1.005-1.025) Urine Protein 100 (2+) H (Neg-Trace) mg/dL Urine Glucose (UA) Negative (Negative) mg/dL Urine Ketones Trace (Negative) mg/dL Urine Blood Large (3+) H (Negative) Urine Nitrite Negative (Negative) Ur Leukocyte Esterase Small (1+) H (Negative) Urine Test NEGATIVE (NEGATIVE) Influenza Type A (PCR) NEGATIVE (Negative) Influenza Type B (PCR) POSITIVE A (Negative) RSV RNA Qual (PCR) NEGATIVE (Negative) SARS-CoV-2 RNA (RT-PCR) NEGATIVE (Negative) S. pyogenes GrpA TERESA Negative (Negative) External Record Review External record reviewed: Outpatient record and Prior outpatient labs Critical Care Time Critical Care Time Critical Care Time: Yes Total Critical Care Time: 30 Attestation: I personally attest to this time spent taking care of the patient. Discharge Plan Discharge Clinical Impression: Viral syndrome, Influenza B Patient Disposition: Home, Self-Care Instructions: Influenza (ED), Viral Syndrome (ED) Additional Instructions: 1. I recommend mcin-prc-hnmwzzv Tylenol/ibuprofen as needed for body tjalc-deeirairs-chqmzwgaynpb greater than 100.4. I also recommend hnea-dqk-tvpslwj Cepacol for relief of sore throat. 2. Follow-up with your primary care doctor 1st thing in the morning. Return to the ER for any worsening symptoms. Prescriptions: New oseltamivir [Tamiflu] 75 mg capsule 75 mg PO BID 5 Days Qty: 10 0RF No Action hydroxyzine HCl 50 mg tablet 50 mg PO Q8H PRN (Reason: itching) Qty: 30 0RF lorazepam [Ativan] 0.5 mg tablet 0.5 mg PO BID PRN (Reason: anxiety) Qty: 10 0RF geirxjdcxc-xpkogjxwuvsmd-iauc [Fioricet] 50-300-40 mg capsule 1 cap PO Q6H PRN (Reason: headache) Qty: 20 0RF tobramycin 0.3 % drops 2 drp ophthalmic-Right Q4H Qty: 5 0RF fluticasone propionate 50 mcg/actuation spray,suspension 1 spray intranasal BID sertraline 50 mg tablet 50 mg PO DAILY cetirizine 10 mg tablet 10 mg PO DAILY Referrals: Geraldine Reyes MD [Primary Care Provider] - Print Language: Japanese
[2023-08-20 21:12] LABS: IDNOW Serial# 08D9AD1C; Strep A Nucleic Acid Negative (Negative)
[2023-08-20 21:42] LABS: Influenza A PCR NEGATIVE (Negative); Influenza B PCR POSITIVE (Negative); Resp Syncy Virus RNA Qual PCR NEGATIVE (Negative); SARS COV2 PCR INHOUSE NEGATIVE (Negative)
[2023-08-20] MEDS: Oseltamivir Phosphate 75 MG CAPSULE PO (23:25)
[2023-08-20] MEDS: Acetaminophen 325 MG TABLET 975 MG PO (23:25)
[2023-08-20 23:38] LABS: Appearance Urine Turbid; Color Urine Dark Yellow; Glucose Urine UA Negative (Negative); Leukocyte Esterase Urine Small (1+) (Negative); Nitrite Urine Negative (Negative); UMIC TRIGGER UACC YES; Urine Blood Large (3+) (Negative); Urine Ketones Trace mg/dL (Negative); Urine Protein 100 (2+) mg/dL (Neg-Trace)
[2023-08-20 23:39] LABS: UPreg QC Valid YES; Urine Pregnancy NEGATIVE (NEGATIVE)
[2023-08-20 23:41] VITALS: BP 143/84; PULSE 99; RESP 16; TEMP 36.9; O2SAT 98
[2023-08-20 23:42] LABS: Bacteria Urine 4+ (None Seen); Hyaline Casts Urine 0-2 /LPF (0-2); RBC Urine >20 /HPF (0-2); Squamous Epithelial Cell Urine >20 /HPF (0-2); UACC Culture Trigger YES
[2023-08-20 23:54] VITALS: BP 143/84; PULSE 99; RESP 16; TEMP 36.9; O2SAT 98
== END 2023-08-20 23:56 | disposition home or self-care (01) ==
PROVIDERS: Physician Assistant Medical; Emergency Provider Student in an Organized Health Care Education/Training Program; PCP Internal Medicine
DX: J10.1 Influenza due to other identified influenza virus with other respiratory manifestations (principal); J02.9 Acute pharyngitis, unspecified; Z11.52 Encounter for screening for COVID-19; J45.909 Unspecified asthma, uncomplicated; Z79.899 Other long term (current) drug therapy
CPT/HCPCS: 0241U; 81001; 81025; 87086; 87651; 99283; 99284

== ENCOUNTER 2024-04-08 06:05 | Outpatient (REF) | payer MEDICAID, SELFPAY | END 2024-04-08 06:06 | disposition home or self-care (01) | LOC: HO.HOSX 06:05 | PROVIDERS: Visit Provider Physician Assistant | DX: Z13.89 Encounter for screening for other disorder (principal) ==

== ENCOUNTER 2025-01-18 22:38 | Inpatient (IN) | payer MEDICAID, SELFPAY ==
--- NOTE | ~2025-01-18 | CT_ITS ---
CLINICAL HISTORY: RLQ pain, r o appy CT abdomen and pelvis with contrast Comparison: None provided Findings: There is mild bibasilar atelectasis. The liver, gallbladder, pancreas, spleen, and adrenal glands are unremarkable. There is a small right renal cyst. Left kidney is unremarkable. The appendix is mildly dilated and there is mild periappendiceal fat stranding consistent with acute appendicitis. There is no abscess or free air. There are no enlarged lymph nodes. The aorta and IVC are normal. Uterus and adnexa are unremarkable. The bladder is unremarkable. There is no fracture or suspicious lytic or sclerotic lesion. IMPRESSION: Acute appendicitis. This document has been electronically signed by: Cornelius Miller MD on 01/19/2025 02:56:45
[2025-01-18 23:03] VITALS: BP 179/84; PULSE 90; RESP 16; TEMP 36.9; O2SAT 100; BMI 42.1
[2025-01-18 23:39] LABS: Hematocrit 40.7 % (37.0-47.0); Hemoglobin 13.3 g/dl (12.0-16.0); Mean Corpuscular Volume 80.6 fL (80.0-98.0); Platelet Count 239 X10*3/uL (160-400); Red Blood Count 5.05 X10*6/uL (4.20-5.50)
[2025-01-19] VITALS (19 sets, daily range): BP systolic 107–163; BP diastolic 57–88; PULSE 59–107; RESP 12–20; TEMP 36–37.7; O2SAT 96–100; BMI 40.0
[2025-01-19] LABS: Calcium 9.0 mg/dL (8.4-10.2); Chloride 110 mmol/L (96-108); Potassium 3.7 mmol/L (3.3-5.1); Sodium 143 mmol/L (135-145)
--- OUTSIDE RECORDS SUMMARY | 2025-01-19 01:44 | XMS_ITS | Encounter Summary ---
Author Organization [facility] Address [address] [place] [phone] Phone Care Team Providers Care Paint Pourer Name Role Phone Madhuri Martinez MD Primary Care Provider Unavailabl e Encounter Details Date Type Department Care Team (Late st Contact Info) Description 10/05/2013 Documentation EM Family Medicine [address] [place] [address] Family Medicine, Physician [facility] [place], [place] [id number] Social History Tobacco Use Types Packs/Day Years Used Date Smoking Tobacco: Never Assessed Comments Unknown Sex and Gender Information Value Date Recorded Sex Assigned at Not on file Legal Sex Female 4:55 PM EDT Gender Identity Not on file Sexual Orientation Not on file documented as of this encounter Plan of Treatment Not on file documented as of this encounter Visit Diagnoses Not on filedocumented in this encounter Care Teams Paint Pourer Relationship Specialty Start Date End Date Madhuri Martinez MD PCP - General 12/07/16 documented as of this encounter
--- OUTSIDE RECORDS SUMMARY | 2025-01-19 01:44 | XMS_ITS | Encounter Summary ---
Author Organization [facility] Address [address] [place] [address] Phone Care Team Providers Care Corporate Intern Name Role Phone Madhuri Martinez MD Primary Care Provider Unavailabl e Encounter Details Date Type Department Care Team (Late st Contact Info) Description 12/13/2016 Conversion Encounter [facility] - [address] [address] Social History Tobacco Use Types Packs/Day Years Used Date Smoking Tobacco: Never Comments:Never smoker Comments Unknown Sex and Gender Information Value Date Recorded Sex Assigned at Not on file Legal Sex Female 4:55 PM EDT Gender Identity Not on file Sexual Orientation Not on file documented as of this encounter Plan of Treatment Not on file documented as of this encounter Visit Diagnoses Not on filedocumented in this encounter Care Teams Corporate Intern Relationship Specialty Start Date End Date Madhuri Martinez MD PCP - General 12/07/16 documented as of this encounter
--- OUTSIDE RECORDS SUMMARY | 2025-01-19 01:44 | XMS_ITS | Clinical Summary ---
Author Organization [facility] Address [address] [place] [phone] Phone Care Team Providers Care Brake Repairer Bus Name Role Phone Madhuri Martinez MD Primary Care Provider Unavailabl e Immunizations Immunization Administration Dates Next Due DTP 03/14/1994, 4,04/20/1993,02/17 DTaP 5 12/09/1996 HPV, Quadrivalent 03/16/2008,11/12/2007,09/11/19 08 Hep B, ped/adol 08/18/1993,03/20/1993,02/17/1993 Hib (PRP-T) 03/14/1994, 4,04/20/1993,02/17 IPV 12/09/1996, 4,04/20/1993,02/17 Influenza Split 02/26/2012 Influenza, injectable, trivalent 01/25/2009 MMR 12/10/1997,12/09/1996 Meningococcal Conj (Menactra) MCV4P 06/21/2006 Rubella 12/10/1997 Td (adult) (MBL), 2 Lf tetan us toxoid, PF, adsorbed 09/27/2004 Tdap 12/13/2009 Varicella 09/11/2007,12/10/1997 Family History Relation Name Status Comments Brother Alive Brother: Efra thierry Pudlak syndrome Maternal Grandmother Materna l aunt: Migraines Mother Alive Mother: Asthma Other Grandfather: Di abetes mellitus Social History Tobacco Use Types Packs/Day Years Used Date Smoking Tobacco: Never Comments:Never smoker Comments Unknown Sex and Gender Information Value Date Recorded Sex Assigned at Not on file Legal Sex Female 4:55 PM EDT Gender Identity Not on file Sexual Orientation Not on file Last Filed Vital Signs Vital Sign Reading Time Taken Comments Blood Pressure 134/80 10/02/2013 12:00 AM EDT Pulse 81 10/02/2013 12:00 AM EDT Temperature 36.4 C (97.6 F) 10/02/2013 12:00 AM EDT Respiratory Rate - - Oxygen Saturation - - Inhaled Oxygen Concentration - - Weight 74.2 kg (163 lb 9.6 oz) 10/02/2013 12:00 AM EDT Height 157.2 cm (5' 1.9 ) 10/02/2013 12:00 AM ED T Body Mass Index 30.02 10/02/2013 12:00 AM EDT Plan of Treatment Health Maintenance Due Date Last Done Comments DTaP,Tdap,and Td Vaccines (7 - Td or Tdap) 12/14/2019 12/13/2009, 09/27/2004, 12/09/1996, Additional history exists Influenza Vaccines (#1) 2024 02/26/2012, 01/25 COVID-19 Vaccine ( season) 2024 Hepatitis B Vaccines Completed 08/18/1993, 03/20/1993, 02/17/1993 HIB Vaccines Completed 03/14/1994, 06/27, 04/20/1993, Additional history exists IPV Vaccines Completed 12/09/1996, 02/27, 04/20/1993, Additional history exists MMR Vaccines Completed 12/10/1997, 12/09/1996 Meningococcal Vaccine Aged Out 06/21/2006 No yelena ita eligible based on patient's age to complete this topic Varicella Vaccines Completed 09/11/2007, 12/10/1997 HPV Vaccines Completed 03/16/2008, 10/27, 09/11/2007 Hepatitis A Vaccines Aged Out No long er eligible based on patient's age to complete this topic Men B Vaccine Aged Out No longer elig ible based on patient's age to complete this topic Pneumococcal Vaccine Aged Out No long er eligible based on patient's age to complete this topic Procedures * Due to [place] [employer] law, this organization might not be sharing sensitive test results. Procedure Name Priority Date/Time Associated Diagnosis Comments CHLAMYDIA AND GONORRHEA, AMPLIFIED Routine 10/05/2013 2:21 PM EDT from Last 3 Months or Most Recently Relevant to Health Maintenance Results * Due to [place] [employer] law, this organization might not be sharing sensitive test results. * Chlamydia and Gonorrhoea, Amplified (10/05/2013 2:21 PM EDT) [facility] URINE GC AMP PROBE NEGATIVE [facility] Comment: NO NEISSERIA GONORRHOEAE RNA DETECTED IN THIS PATIENT'S SAMPLE. (REFERENCE RANGE/NORMAL VALUE: NOT DETECTED) NOTE: This test uses referral nurse-mediated amplification method to detect rRNA from C.Trachomatis and N.Gonorrhoeae. A negative result does not preclude infection. In the case of a negative urine result, testing of an endocervical(female) or urethral(male) specimen is recommended if there is high clinical suspicion of infection. The performance characteristics of this test have not been evaluated in children. The Aptima Combo2 assay is not intended for the evaluation of suspected sexual abuse or for other medico-legal indications. The ordering provider should assess if the patient had consensual sex without risk of sexual abuse. Consult the [facility] if needed. Contact phone number . Therapeutic failure or success cannot be determined with the Aptima Combo2 assay since nucleic acid may persist following appropriate antimicrobial therapy. The Centers for Disease Control and Prevention (CDC) recommends confirmatory retesting using culture or a different nucleic acid amplification test when positive results occur, if indicated. Testing performed or reported by [facility], a Service of [facility], [address] [place] [address] Darell Morgan, Machine Steak Tenderizer URINE CHLAMYDIA AMP PROBE NEGATIVE [facility] Comment: NO CHLAMYDIA TRACHOMATIS RNA DETECTED IN THIS PATIENT'S SAMPLE. (REFERENCE RANGE/NORMAL VALUE: NOT DETECTED) 10/05/2013 2:21 PM EDT Narrative [facility] - 10/05/2013 2:21 PM EDT URINE CHLAMYDIA GC AMP PROBE us Yunier Oviedo MD LAB MICROBIOLOGY - GENERAL ORDER SVETLANA Final Result [facility] [address] [place] [address], from Last 3 Months or Most Recently Relevant to Health Maintenance Care Teams Brake Repairer Bus Relationship Specialty Start Date End Date Madhuri Martinez MD PCP - General 12/07/16
--- OUTSIDE RECORDS SUMMARY | 2025-01-19 01:44 | XMS_ITS | Encounter Summary ---
Author Organization [facility] Address [address] [place] [phone] Phone Care Team Providers Care Marketing Administrator Name Role Phone Madhuri Martinez MD Primary Care Provider Unavailabl e Encounter Details Date Type Department Care Team (Late st Contact Info) Description 10/24/2011 Documentation EM Family Medicine [address] [place] [address] Family Medicine, Physician [address] [place], [place] [id number] Social History Tobacco Use Types Packs/Day Years [...] on filedocumented in this encounter Care Teams Marketing Administrator Relationship Specialty Start Date End Date Madhuri Martinez MD PCP - General 12/07/16 documented as of this encounter
--- OUTSIDE RECORDS SUMMARY | 2025-01-19 01:44 | XMS_ITS | Encounter Summary ---
Author Organization [facility] Address [address] [place] [phone] Phone Care Team Providers Care Streetcar Starter Name Role Phone Madhuri Martinez MD Primary Care Provider Unavailabl e Encounter Details Date Type Department Care Team (Late st Contact Info) Description 10/27/2013 Documentation EM Family Medicine [address] [place] [address] Family Medicine, Physician [address], [place] [phone] Social History Tobacco Use Types Packs/Day Years [...] on filedocumented in this encounter Care Teams Streetcar Starter Relationship Specialty Start Date End Date Madhuri Martinez MD PCP - General 12/07/16 documented as of this encounter
[2025-01-19] MEDS: iohexoL 350 MG/ML 100 ML INFUS..BTL 85 ML IV (01:53)
--- NOTE | 2025-01-19 02:50 | ED_ITS ---
HPI - General Adult General Chief complaint: Abdominal Pain Stated complaint: abdominal pain Time Seen by Provider: 01/19/25 00:59 Source: patient Limitations: no limitations History of Present Illness HPI narrative: 34-year-old female with a history of obesity, albinism, legal blindness, asthma who presents with the abdominal pain x2 days. Pain began over umbilicus area, throughout the day it began to migrate to the right lower quadrant. Pain is intermittent, becoming sharp and severe at times. Pain worse with movement. Denies nausea vomiting diarrhea, dysuria, hematuria, history of kidney stones or fever. Related Data Home Medications ?Medication ?Instructions ?Recorded ?Confirmed cetirizine 10 mg tablet 10 mg PO DAILY 04/10/21 fluticasone propionate 50 1 spray intranasal BID 04/10 mcg/actuation nasal spray,suspension sertraline 50 mg tablet 50 mg PO DAILY 04/10/21 Previous Rx's ?Medication ?Instructions ?Recorded hydroxyzine HCl 50 mg tablet 50 mg PO Q8H PRN itching #30 tabs 11/19/20 lorazepam 0.5 mg tablet (Ativan) 0.5 mg PO BID PRN anx iety #10 tabs 11/19/20 jejmavhckk-yrekjaofmhrth-cwqbuwyl 1 cap PO Q6H PRN hea dache #20 caps 09/08/22 50 mg-300 mg-40 mg capsule (Fioricet) tobramycin 0.3 % eye drops 2 drp ophthalmic-Right Q4H #5 mL 09/08/22 oseltamivir 75 mg capsule (Tamiflu) 75 mg PO BID 5 day s #10 caps 08/20/23 Allergies Allergy/AdvReac Type Severity Reaction Status Date / Time aspirin (From ASPIRIN AdvReac Unknown RASH Verified 01/18/25 23:07 REGIMEN GARRETT/CALCIUM) Review of Systems 2 Review of Systems: Yes all other systems are reviewed and are negative Constitutional: Constitutional: Denies fatigue and Denies fever(s) Cardiovascular: Cardiovascular: Denies chest pain and Denies dyspnea Respiratory: Respiratory: Denies dyspnea Gastrointestinal: Gastrointestinal: Reports abdominal pain, Denies constipation, Denies diarrhea, Denies nausea and Denies vomiting Genitourinary: Genitourinary: Denies hematuria, Denies dysuria, Denies pelvic pain and Denies flank pain Endocrine: Endocrine: Denies fatigue PMF Past Medical History Attestation statement: The following information was validated with the patient. Medical History Scalp cyst Asthma Legally blind Hermansky-Pudlak syndrome Social History Social History Alcohol intake: never Patient Tobacco Use Status: Never used Tobacco Smoked in Last 30 Days: No Use of substances other than those prescribed or required for medical reasons: No Advance Directives: No Advance Directives Information Provided: Yes Do you have a plan to hurt others: No Plan Patient : No Current occupational status: disabled Current occupation: rt hand Physical Exam ED Vital Signs: Vital Signs - 24 hr 01/18/25 23:03 01/19/25 01:29 01/19/25 03:33 Temperature 98.5 F 99.8 F 98.8 F Pulse Rate 90 73 81 Respiratory Rate 16 16 16 Blood Pressure 179/84 H 151/87 H 156/88 H Pulse Oximetry 100 99 99 Oxygen Delivery Method Room Air Room Air Room Air BMI result Body Mass Index 42.1 Const Other: Alert Orientation/consciousness: patient oriented x3 Resp Effort & Inspection: normal respiratory effort Cardio Other: Normal peripheral perfusion GI Other: Abdomen is soft, obese, mild to moderate tenderness right lower quadrant with minimal involuntary guarding, some degree of referred pain from left lower abdomen to the right with the palpation Skin Other: Warm dry no rash Neuro Other: With the exception that she is legally blood General: patient oriented x3, gait normal, no focal motor deficits and CN's II- XI intact bilaterally Psych Other: Cooperative Course Consultations Consultation #1: Dr. Rodríguez .....will admit to his service...he will see her in AM Time: 03:25 Medications Administered Generic Name Dose Route Start Last Admin Trade Name Freq PRN Reason Stop Dose Admin Metronidazole 500 mg in 100 mls @ 100 mls/hr 01/19/25 03:16 01/19/25 03:39 Flagyl IV 01/19/25 04:15 100 mls/hr ONCE ONE Administration Discontinued Medications Generic Name Dose Route Start Last Admin Trade Name Freq PRN Reason Stop Dose Admin Ceftriaxone Sodium 2 gm 01/19/25 03:16 01/19/25 03:36 Ceftriaxone Sodium 2 Gm Vial IVPUSH 01/19/25 03:17 2 gm ONCE ONE Administration Sodium Chloride 1,000 mls @ 999 mls/hr 01/19/25 01:15 01/19/25 02:40 Ns IV 01/19/25 02:15 Infused .Q1H1M AL Infusion Iohexol 85 ml 01/19/25 01:52 01/19/25 01:53 Iohexol 350 Mg/Ml 100 Ml Infus..Btl IV 01/19/25 01:53 85 ml ONCE ONE Administration Morphine Sulfate 4 mg 01/19/25 01:06 01/19/25 01:24 Morphine Sulfate 4 Mg/Ml Cartridge IVPUSH 01/19/25 01:07 4 mg ONCE ONE Administration Protocol Morphine Sulfate 4 mg 01/19/25 03:18 01/19/25 03:36 Morphine Sulfate 4 Mg/Ml Cartridge IVPUSH 01/19/25 03:19 4 mg ONCE ONE Administration Protocol Medical Decision Making Medical Decision Making MDM Narrative: 34-year-old female with a history of obesity, albinism, legal blindness, asthma who presents with the abdominal pain x2 days. Pain began over umbilicus area, throughout the day it began to migrate to the right lower quadrant. Pain is intermittent, becoming sharp and severe at times. Pain worse with movement. Denies nausea vomiting diarrhea, dysuria, hematuria, history of kidney stones or fever. Problem: Obesity History: Per patient I have considered the following differential diagnoses: Renal colic, pyelonephritis, UTI, torsion, appendicitis Plan: Given nature of symptoms and distribution of discomfort, I am considering appendicitis we will be obtaining a CT scan of the abdomen. Giving morphine and IV fluid. She has no back pain or flank pain to suggest renal colic. She has no symptoms at all, UTI and pyelonephritis less likely, we will collect a urine sample. I am considering torsion, she may require a transvaginal ultrasound if the CT scan is indeterminate. Labs: No leukocytosis, not anemic, no electrolyte abnormality, not , urine appears potentially infected CT abd pelvis: Findings: There is mild bibasilar atelectasis. The liver, gallbladder, pancreas, spleen, and adrenal glands are unremarkable. There is a small right renal cyst. Left kidney is unremarkable. The appendix is mildly dilated and there is mild periappendiceal fat stranding consistent with acute appendicitis. There is no abscess or free air. There are no enlarged lymph nodes. The aorta and IVC are normal. Uterus and adnexa are unremarkable. The bladder is unremarkable. There is no fracture or suspicious lytic or sclerotic lesion. IMPRESSION: Acute appendicitis. Differential Diagnosis Differential Diagnoses: The differential diagnosis associated with the presentation includes See medical decision-making Admission/Observation Consideration of admission/observation: Escalation of care including admission/observation considered Admit to medical service Consult Healthcare Provider Management of the patient was discussed with: [facility] Lab Data MDM Lab Attestation statement: I reviewed the patient's lab results. 01/18/25 23:31 01/18/25 23:31 Labs: Lab Results 01/18/25 01/19/25 Range/Units 23:31 01:26 WBC 10.7 (4.8-10.8) X10*3/uL RBC 5.05 (4.20-5.50) X10*6/uL Hgb 13.3 (12.0-16.0) g/dl Hct 40.7 (37.0-47.0) % MCV 80.6 (80.0-98.0) fL MCH 26.3 L (27.0-33.0) pg MCHC 32.7 (31.0-35.0) g/dl RDW 14.4 (11.0-16.0) % Plt Count 239 (160-400) X10*3/uL MPV 10.8 (9.4-12.3) fL Immature Gran % (Auto) 0.5 H (0.0-0.4) % Neut % (Auto) 63.4 (45-73) % Lymph % (Auto) 27.1 (20-40) % [place] % (Auto) 6.4 (2-11) % Eos % (Auto) 2.2 (0-4) % Baso % (Auto) 0.4 (0-2) % Lymph # (Auto) 2.9 (1.2-4.9) X10*3/uL [place] # (Auto) 0.7 (0.1-1.2) X10*3/uL Eos # (Auto) 0.2 (0.0-0.4) X10*3/uL Baso # (Auto) 0.0 (0.0-0.2) X10*3/uL Abs Immat Gran (auto) 0.05 H (0.00-0.03) X10*3/uL Absolute Neuts (auto) 6.8 (2.0-8.3) x10*3/uL Absolute Nucleated RBC 0.000 (0.0-0.012) X10*3/uL Nucleated RBC % (auto) 0.0 (0.0-0.2) /100WBC Sodium 143 (135-145) mmol/L Potassium 3.7 (3.3-5.1) mmol/L Chloride 110 H (96-108) mmol/L Carbon Dioxide 26 (22-29) mmol/L Anion Gap 11 L (12-20) BUN 11 (9-16) mg/dL Creatinine 0.74 (0.5-1.4) mg/dL Estim Creat Clear Calc 123.7 Estimated GFR > 60 Random Glucose 87 (60-115) mg/dL Calcium 9.0 D (8.4-10.2) mg/dL Total Bilirubin 0.2 (0.0-1.0) mg/dL AST 23 (5-31) U/L ALT 20 (0-31) U/L Alkaline Phosphatase 70 (39-117) U/L Total Protein 7.4 (6.5-8.0) g/dL Albumin 4.1 (3.5-5.0) g/dL Lipase 23 (8-78) U/L Beta HCG, Quant < 2 mIU/mL Urine Color Yellow Urine Appearance Turbid Urine pH 5.5 (5.0-9.0) Ur Specific [place] 1.025 (1.005-1.025) Urine Protein 100 (2+) H (Neg-Trace) mg/dL Urine Glucose (UA) Negative (Negative) mg/dL Urine Ketones Trace (Negative) mg/dL Urine Blood Large (3+) H (Negative) Urine Nitrite Negative (Negative) Ur Leukocyte Esterase Small (1+) H (Negative) Urine RBC >20 H (0-2) /HPF Urine WBC 21-50 H (0-5) /HPF Ur Squamous Epith Cells >20 (0-2) /HPF Other Crystals Present Urine Bacteria 4+ (None Seen) Hyaline Casts 0-2 (0-2) /LPF Radiology Impression Discussion of test interpretation with radiology: I have reviewed the radiologist's reading. Critical Care Time Critical Care Time Critical Care Time: Yes Total Critical Care Time: 35 Attestation: I Roxana Lagos PA-C have personally performed 35 minutes of critical care time not including lines and procedures; need for IV analgesia, IV antibiotic therapy, surgical consult admission for acute appendicitis Discharge Plan Discharge Clinical Impression: Acute appendicitis Patient Disposition: Admitted As Inpatient
[2025-01-19] MEDS: metroNIDAZOLE/NS 500 MG/100 ML PIGGYBACK 100 MG IV ×2 (03:39→12:07)
[2025-01-19] MEDS: Dextrose 5 % and Lactated Ring 1,000 ML 125 ML IVCONT ×2 (04:44→18:22)
--- NOTE | 2025-01-19 07:27 | PM.HPGS ---
History of Present Illness History of Present Illness Date of Service: 01/19/25 <Lili Eaton PA-C - Last Filed: 01/19/25 07:41> 01/19/25 <Ramon Rodríguez MD - Last Filed: 01/19/25 08:34> Chief complaint: acute appendicitis <Lili Eaton PA-C - Last Filed: 01/19/25 07:41> Narrative: Reina Agrawal is a 34 year old female with PMH of hypertension, legally blind, intermittent asthma, who presented to the ED with complaints of right sided abd pain. She reports the pain started just above her umbilicus two days ago and then migrated to her RLQ yesterday. She initially thought she was hungry and then had to move her bowels but she had a bowel movement without improvement in her pain. The pain gradually worsened and she arranged for a audio video mechanic and came to the ED for evaluation. Work up included CBC, BMP, LFTs which were essentially unremarkable. CT scan abd pelvis was obtained which showed a mildly dilated appendix with mild surrounding inflammatory changes suggestive of acute appendicitis. She feels somewhat improved this morning after pain meds. She denies fevers, chills, nausea, vomiting, diarrhea, similar prior episodes of pain. She denies prior abdominal surgery. <Lili Eaton PA-C - Last Filed: 01/19/25 07:41> Review of Systems Review of Systems: Yes all other systems are reviewed and are negative <Lili Eaton PA-C - Last Filed: 01/19/25 07:41> FORMERLY [facility], [facility] Past Medical History Medical History: Medical History Scalp cyst Asthma Legally blind Hermansky-Pudlak syndrome <Lili Eaton PA-C - Last Filed: 01/19/25 07:41> Social History Social History: Social History Alcohol intake: never Patient Tobacco Use Status: Never used Tobacco Smoked in Last 30 Days: No Use of substances other than those prescribed or required for medical reasons: No Advance Directives: No Advance Directives Information Provided: Yes Do you have a plan to hurt others: No Plan Nutrition Risks: No Nutritional Risk Patient : No Current occupational status: disabled Current occupation: rt hand <Lili Eaton PA-C - Last Filed: 01/19/25 07:41> Meds Allergies/Adverse reactions: Allergies Allergy/AdvReac Type Severity Reaction Status Date / Time aspirin (From ASPIRIN AdvReac Unknown RASH Verified 01/18/25 23:07 REGIMEN GARRETT/CALCIUM) <Lili Eaton PA-C - Last Filed: 01/19/25 07:41> Active Medications: Current Medications Hydromorphone HCl (Hydromorphone Hcl 0.5 Mg/0.5 Ml Syringe) 0.5 mg IVPUSH Q3H PRN; Protocol PRN Reason: Pain, Severe (Pain Scale 7-10) Acetaminophen (Ofirmev) 1,000 mg in 100 mls @ 400 mls/hr IV Q6H PRN PRN Reason: Pain, Mild (Pain Scale 1-3) Dextrose/Lactated Ringer's (D5lr) 1,000 mls @ 125 mls/hr IVCONT .Q8H AL Last Admin: 01/19/25 04:44 Dose: 125 mls/hr Metronidazole (Flagyl) 500 mg in 100 mls @ 100 mls/hr IV Q8H AL Melatonin (Melatonin 3 Mg Tablet) 6 mg PO BEDTIME PRN PRN Reason: Insomnia Ondansetron HCl (Ondansetron Hcl 4 Mg/2 Ml Vial) 4 mg IVPUSH QID PRN PRN Reason: Nausea Sodium Chloride (0.9 % Sodium Chloride Flush 3 Ml Syringe) 3 ml IVFLUSH QSHIFT [facility] <Lili Eaton PA-C - Last Filed: 01/19/25 07:41> Home medications: Home Medications ?Medication ?Instructions ?Recorded ?Confirmed ?Last Taken ?Type cetirizine 10 mg tablet 10 mg PO DAILY 04/10/21 Unknown History fluticasone propionate 50 1 spray intranasal BID 04/10/21 Unknown History mcg/actuation nasal spray,suspension sertraline 50 mg tablet 50 mg PO DAILY 04/10/21 Unknown History albuterol sulfate 90 mcg/actuation 2 puff inhalation QID PRN asthma 01/19/25 Unknown History aerosol inhaler (Ventolin HFA) fluticasone furoate 100 inhalation DAILY 01/19/25 01/19/25 Unknown History mcg/actuation blister powder for inhalation (Arnuity Ellipta) losartan 100 mg tablet 100 mg PO DAILY 01/19/25 Unknown History montelukast 10 mg tablet 10 mg PO DAILY 01/19/25 Unknown History <Lili Eaton PA-C Kacey Last Filed: 01/19/25 07:41> Physical Exam Vital Signs: Vital Signs: Last Vital Signs Temp 98.8 F 01/19/25 03:33 Pulse 69 01/19/25 04:43 Resp 12 01/19/25 04:43 BP 122/60 01/19/25 04:43 Pulse Ox 97 01/19/25 04:43 O2 Del Method Room Air 01/19/25 04:43 BMI result Body Mass Index 42.1 <Lili Eaton PA-C [employer] Last Filed: 01/19/25 07:41> Const: General: comfortable, no acute distress and alert <Lili Eaton PA-C [employer] Last Filed: 01/19/25 07:41> Orientation/consciousness: patient oriented x3 <Lili Eaton PA-C [employer] Last Filed: 01/19/25 07:41> Resp: Effort & Inspection: normal respiratory effort <Lili Eaton PA-C [employer] Last Filed: 01/19/25 07:41> Cardio: Rate: regular rate <VONNIE Duarte [employer] Last Filed: 01/19/25 07:41> GI: Other: corpulent abdomen <Lili Eaton PA-C [employer] Last Filed: 01/19/25 07:41> Inspection: No distended and No scar <Lili Eaton PA-C [employer] Last Filed: 01/19/25 07:41> Palpation (GI): Soft to palpation and Tenderness to palpation present (GI) (mild periumbilical tenderness, moderate RLQ) Rovsing's sign positive <Lili Eaton PA-C Kacey Last Filed: 01/19/25 07:41> Percussion: Yes normal to percussion <Lili Eaton PA-C [employer] Last Filed: 01/19/25 07:41> Skin: Other: warm and dry <GILDA Duarte Last Filed: 01/19/25 07:41> Neuro: General: patient oriented x3 and moves all extremities <GILDA Duarte Last Filed: 01/19/25 07:41> Results Results Labs: Short CBC 01/18/25 Range/Units 23:31 WBC 10.7 (4.8-10.8) X10*3/uL Hgb 13.3 (12.0-16.0) g/dl Hct 40.7 (37.0-47.0) % Plt Count 239 (160-400) X10*3/uL BMP 01/18/25 23:31 Sodium 143 Potassium 3.7 Chloride 110 H Carbon Dioxide 26 BUN 11 Creatinine 0.74 Calcium 9.0 D Liver Function 01/18/25 Range/Units 23:31 Total Bilirubin 0.2 (0.0-1.0) mg/dL AST 23 (5-31) U/L ALT 20 (0-31) U/L Alkaline Phosphatase 70 (39-117) U/L Albumin 4.1 (3.5-5.0) g/dL Urine 01/19/25 Range/Units 01:26 Urine Color Yellow Urine Appearance Turbid Urine pH 5.5 (5.0-9.0) Ur Specific [place] 1.025 (1.005-1.025) Urine Protein 100 (2+) H (Neg-Trace) mg/dL Urine Glucose (UA) Negative (Negative) mg/dL <GILDA Duarte Last Filed: 01/19/25 07:41> Abdomen CT scan report/results: report reviewed and image reviewed <GILDA Duarte Last Filed: 01/19/25 07:41> Additional studies: labs reviewed <GILDA Duarte Last Filed: 01/19/25 07:41> Assessment and Plan (1) Acute appendicitis: Status: Acute <GILDA Duarte Last Filed: 01/19/25 07:41> 34 year old female with PMH of hypertension, legally blind, intermittent asthma presenting with periumbilical abd pain that migrated to her RLQ and became severe with CT scan showing dilated appendix with mild surrounding inflammatory changes. WBC normal. NO fecalith on CT scan noted. Clinical picture consistent with early acute appendicitis. Treatment options were discussed including observation with IV abx or proceeding with laparoscopic appendectomy, possible open. She is thinking about her options. All questions answered with patient and father at bedside. Will return later today to discuss. Cont IV zosyn, IVF, NPO status for now. <Lili Eaton PA-C - Last Filed: 01/19/25 07:41> 34 year old female with PMH of hypertension, legally blind, intermittent asthma presenting with periumbilical abd pain that migrated to her RLQ and became severe with CT scan showing dilated appendix with mild surrounding inflammatory changes. WBC normal. NO fecalith on CT scan noted. Clinical picture consistent with early acute appendicitis. Treatment options were discussed including observation with IV abx or proceeding with laparoscopic appendectomy, possible open. She is thinking about her options. All questions answered with patient and father at bedside. Will return later today to discuss. Cont IV zosyn, IVF, NPO status for now. Patient seen and examined and agree with the above assessment and plan. I also discussed the options of antibiotics versus surgical intervention. Patient is not interested in pursuing nonoperative management and would like to proceed to laparoscopic or possible open appendectomy. She informed me of a prior history of hemophilia and was worked up at [facility]. She does report a history of bleeding with prior surgeries but has no information regarding prior management. I will request a Hematology consultation preoperatively. Patient expressed understanding and agrees with the plan. After discussion of the procedure, risks, and alternatives, she consents to a laparoscopic or possible open appendectomy. <Ramon Rodríguez MD - Last Filed: 01/19/25 08:34> Quality Stroke Does the patient have a stroke diagnosis?: No <Lili Eaton PA-C - Last Filed: 01/19/25 07:41> VTE Prior VTE?: No <Lili Eaton PA-C - Last Filed: 01/19/25 07:41> VTE Risk Level:: Surgical - moderate <Lili Eaton PA-C - Last Filed: 01/19/25 07:41> VTE Device Contraindication: N/A - Device Ordered <Lili Eaton PA-C - Last Filed: 01/19/25 07:41> VTE Drug Contraindication: Treatment Not Indicated <Lili Eaton PA-C - Last Filed: 01/19/25 07:41> Procedures Date of Service Date of Service: 01/19/25 <Lili Eaton PA-C - Last Filed: 01/19/25 07:41> 01/19/25 <Ramon Rodríguez MD - Last Filed: 01/19/25 08:34>
--- NOTE | 2025-01-19 08:44 | PM.HEMONCCN ---
Subjective - Subjective Chief complaint: Consult for: Hermansky-Pudlak Syndrome. Patient: new to practice Consult date: 01/19/25 Requesting Physician: Dr. Rodríguez. Primary Care Provider: Geraldine Reyes MD Family Provider: Geraldine Reyes MD Medical Summary: DIAGNOSIS: Hermanski Pudlaklsyndrome Food Service Cashier Utilized?: No - Yak[place] Speaking HPI - Consult Narrative Reason for consult: Consult for: Hermansky Pudlak Syndrome. Narrative: Reina Agrawal is a 34 year old lady, with PMH of hypertension, legally blind, intermittent asthma, who presented to the ED with complaints of right sided abd pain. She mentions the pain started above her umbilicus two days ago. It then migrated to her RLQ yesterday. She grades the pain as 7 on 1-10 scale. She tried Pepto-Bismol and Tylenol without significant benefit. She got nausea but that was after she received the morphine here. Her bowels are not too hard not to soft. She initially thought she was hungry and then had to move her bowels. She had a bowel movement without improvement in her pain. The pain gradually worsened and she arranged for a pancake professional and came to the ED for evaluation. She denies fevers, chills, nausea, vomiting, diarrhea, similar prior episodes of pain. She denies prior abdominal surgery. DATABASE: CBC: WBC 10.7, HGB 13.3, HCT 40.7, PLT 239. BMP: Normal, LFTs: 0.2/70/23/20. Beta-hCG: <2. CT scan abd pelvis showed: A mildly dilated appendix with mild surrounding inflammatory changes suggestive of acute appendicitis. She feels better this morning after pain meds. PMFSH: Medical History:) 1. 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 She was seen by Dr. Eber Hernandez at [facility], who confirmed the diagnosis. As a child she had several nosebleeds which prompted the evaluation. She had heavy menses. She did get dental extractions under the cover of DDAVP and Amicar and had no significant bleeding. 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 With the of her 2 children 1 in 2009 and the other in 2014 she was given platelets just prior to delivery and had very little bleeding. She denies any serious pulmonary issues with her syndrome. She has mild asthma. She does not have inflammatory bowel disease associated with the syndrome as well. 2. Scalp cyst 3. Asthma 4. Legally blind 5. Hermansky-Pudlak syndrome Family history: Her brother has her Hermanski pudlak syndrome as well. Social History:) She does not work. She is . She has 2 children 14 and 10-year-old. She denies smoking. Alcohol intake: never Patient Tobacco Use Status: Never used Tobacco Smoked in Last 30 Days: No Use of substances other than those prescribed or required for medical reasons: No Advance Directives: No. Review of Systems: ROS: She has been feeling rather fatigued. Denies fever nor chills. Appetite has gone down. Weight is stable. Denies any headache no dizziness. Chest pain or trouble breathing. She complains of pain in her right lower quadrant area. She is tender there. Denies nausea nor vomiting right now. Bowels are stable. No gross blood in the stools. She denies any urinary complaints. Denies any joint pain or muscle pain. Denies any focal weakness. Denies depression. No skin rashes no pruritus. She has albinism. Review of Systems: Yes all other systems are reviewed and are negative Review of Systems - Constitutional Reports system reviewed and no additional complaints, except as documented - Eyes Reports system reviewed and no additional complaints, except as documented - ENT Reports system reviewed and no additional complaints, except as documented - Cardiovascular Reports system reviewed and no additional complaints, except as documented - Respiratory Reports no additional respiratory complaints - Gastrointestinal Reports system reviewed and no additional complaints, except as documented - Genitourinary Reports no additional female genitourinary complaints - Musculoskeletal Reports system reviewed and no additional complaints, except as documented - Integumentary/Breasts Skin/Breast: Reports no additional skin complaints - Neurologic Reports system reviewed and no additional complaints, except as documented - Psychiatric Reports system reviewed and no additional complaints, except as documented - Endocrine Reports no additional endocrine complaints - Hematologic/Lymphatic Reports system reviewed and no additional complaints, except as documented - Allergic/Immunologic Reports system reviewed and no additional complaints, except as documented Oncology Screenings - ECOG Performance Status ECOG Performance Status: 0 [facility] Medical History: Medical History (Last Reviewed 01/19/25 @ 12:43 by Agueda Montoya RN) Asthma Hermansky-Pudlak syndrome Legally blind Scalp cyst Functional capacity: independent ambulation Patient : No Social History: Social History (Last Reviewed 08/20/23 @ 23:43 by Jackie Rahman MD) Living Situation History: Household Members: Children Housing: Apartment Are you a primary health care aide to a significant other at home: No Do you presently have visiting nurse or other home services: No Tobacco History: Patient Tobacco Use Status: Never used Tobacco Occupation Assessmet: service: No Current occupational status: disabled Current occupation: rt hand Home Medications and Allergies Current Medications: Current Medications Hydromorphone HCl (Hydromorphone Hcl 0.5 Mg/0.5 Ml Syringe) 0.5 mg IVPUSH Q3H PRN; Protocol PRN Reason: Pain, Severe (Pain Scale 7-10) Acetaminophen (Ofirmev) 1,000 mg in 100 mls @ 400 mls/hr IV Q6H PRN PRN Reason: Pain, Mild (Pain Scale 1-3) Dextrose/Lactated Ringer's (D5lr) 1,000 mls @ 125 mls/hr IVCONT .Q8H [facility] Last Admin: 01/19/25 04:44 Dose: 125 mls/hr Metronidazole (Flagyl) 500 mg in 100 mls @ 100 mls/hr IV Q8H AL Melatonin (Melatonin 3 Mg Tablet) 6 mg PO BEDTIME PRN PRN Reason: Insomnia Ondansetron HCl (Ondansetron Hcl 4 Mg/2 Ml Vial) 4 mg IVPUSH QID PRN PRN Reason: Nausea Sodium Chloride (0.9 % Sodium Chloride Flush 3 Ml Syringe) 3 ml IVFLUSH QSHIFT [facility] Last Admin: 01/19/25 07:38 Dose: Not Given Home Medications ?Medication ?Instructions ?Recorded ?Confirmed ?Type albuterol sulfate 90 mcg/actuation 2 puff inhalation QID PRN asthma 01/19/25 01/19/25 History aerosol inhaler (Ventolin HFA) multivitamin 1 tab PO DAILY 01/19/25 01/19/25 History Allergies Allergy/AdvReac Type Severity Reaction Status Date / Time aspirin (From ASPIRIN AdvReac Unknown RASH Verified 01/18/25 23:07 REGIMEN GARRETT/CALCIUM) Physical Exam Vital signs: Vital Signs Temp 97.2 F 01/19/25 08:42 Pulse 86 01/19/25 08:42 Resp 17 01/19/25 08:42 BP 143/70 H 01/19/25 08:42 Pulse Ox 99 01/19/25 08:42 O2 Del Method Room Air 01/19/25 08:42 Intake & Output 01/18/25 01/19/25 01/19/25 18:59 06:59 18:59 Intake Total 1100 / 1100 Balance 1100 / 1100 Intake: Intake, IV Amount 1100 / 1100 0.9 % Sodium Chloride 1,000 ml 1000 / 1000 @ 999 mls/hr IV .Q1H1M AL Rx#: [id number] metroNIDAZOLE/NS 500 mg In 100 100 / 100 ml @ 100 mls/hr IV ONCE ONE Rx# :[id number] Other: Weight 104.3 kg Weight 104.3 kg - Constitutional Present: moderate distress - Routine HEENT Exam Head: Present: normal inspection - Routine Neck Exam Present: supple - Routine Respiratory Exam Present: CTAB - Routine Cardiovascular Exam Cardiovascular: Present: RRR, S1, S2 - Routine Abdominal Exam Present: rebound, soft, tenderness, nontender - Routine Extremities Exam Present: nontender - Routine Skin Exam Present: intact - Routine Neurological Exam Present: alert, oriented X3 - Detailed Neurological Exam: Coma Scale Eye Opening: Spontaneous (4) - Routine Psychiatric Exam Present: normal affect Hem/Onc Consult Result - Labs CBC & Chem 7: 01/18/25 23:31 01/18/25 23:31 Labs: Short CBC 01/18/25 Range/Units 23:31 WBC 10.7 (4.8-10.8) X10*3/uL Hgb 13.3 (12.0-16.0) g/dl Hct 40.7 (37.0-47.0) % Plt Count 239 (160-400) X10*3/uL BMP 01/18/25 23:31 Sodium 143 Potassium 3.7 Chloride 110 H Carbon Dioxide 26 BUN 11 Creatinine 0.74 Calcium 9.0 D Liver Function 01/18/25 Range/Units 23:31 Total Bilirubin 0.2 (0.0-1.0) mg/dL AST 23 (5-31) U/L ALT 20 (0-31) U/L Alkaline Phosphatase 70 (39-117) U/L Albumin 4.1 (3.5-5.0) g/dL Urine 01/19/25 Range/Units 01:26 Urine Color Yellow Urine Appearance Turbid Urine pH 5.5 (5.0-9.0) Ur Specific [place] 1.025 (1.005-1.025) Urine Protein 100 (2+) H (Neg-Trace) mg/dL Urine Glucose (UA) Negative (Negative) mg/dL Assessment and Plan Patient Active problem list reviewed?: Yes (1) Hermansky-Pudlak syndrome Status: Acute Assessment and plan: This is a pleasant 74-year-old lady with a history of hermanski Pudllak syndrome. 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 A year later she was diagnosed with Hermanski Pudlak disease. She was seen by Dr. Eber Hernandez at [facility], who confirmed the diagnosis. As a child she had several nosebleeds which prompted the evaluation. She had heavy menses. She did get dental extractions under the cover of DDAVP and Amicar and had no significant bleeding. 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 With the of her 2 children 1 in 2009 and the other in 2014 she was given platelets just prior to delivery and had very little bleeding. She denies any serious pulmonary issues with her syndrome. She has mild asthma. She does not have inflammatory bowel disease associated with the syndrome as well. Patients with Hermanski Pudlak disorder have a qualitative platelet functional defect. Some do respond to DDAVP but must do not. She now presents with acute appendicitis. Will need to go to the OR later today. PLAN: I would recommend the patient to receive platelet transfusion prophylactically, time to be immediately before the surgery. (blood bank has been informed.) If bleeding occurs post surgery she can have another unit of platelets. I would opt out of giving regional anesthesia altogether with the risk of bleeding. She does know to avoid aspirin and nonsteroidals. With the best of luck with the surgery. Thank you for the consult, I will follow along with you, CC: Dr. Geraldine Reyes. Addendum: She underwent the appendicectomy, un eventfully. (2) Hermansky-Pudlak syndrome Status: Acute - Time Spent With Patient Time Spent with Patient (in minutes): 35
--- NOTE | 2025-01-19 10:31 | PHA.MEDREC ---
Addendum entered by Ran Patterson PharmD 01/19/25 10:36: reviewed Original Note: Pharmacy Consult ? Medication Reconciliation Pharmacy has completed the medication reconciliation. Patient states she only use albuterol HFA inhaler when needed. patient reports she is suppose to be taking Losartan 100 mg , however he has not been taking because it makes her dizzy.
--- NOTE | 2025-01-19 14:05 | P.CONAN_ITS ---
Documented by User: Janie Butler NP 01/19/25 09:04 HPI - Anesthesia Eval Consult details Narrative: 34 yr old female for laparoscopic appendectomy Legally blind (Hermansky-pudlak syndrome) H/O hemophilia: bleeding with prior surgeries reported by pt, worked up at [facility] [place]; Dr. Cardoso has already seen pt in ED as she was consulted by surger for mgt; H/H & platelets are unremarkable. PMFSH Active Problems Active Problems: All Active Problems Acute appendicitis (Acute) Ligamentous laxity of hand (Acute) Bilateral hand numbness (Acute) Scalp cyst (Acute) Past Medical History Medical History Scalp cyst Asthma Legally blind Hermansky-Pudlak syndrome Functional capacity: independent ambulation Social History Social History Household Members: Children Housing: Apartment Are you a primary primary care md to a significant other at home: No Do you presently have visiting nurse or other home services: No Alcohol intake: never Patient Tobacco Use Status: Never used Tobacco Smoked in Last 30 Days: No Use of substances other than those prescribed or required for medical reasons: No Have you been hit, kicked, punched, or otherwise hurt by someone within the past year? If so, by whom?: No Do you feel safe in your current relationship?: Yes Is there a partner from a previous relationship who is making you feel unsafe n ow?: No Are you made to feel afraid or neglected: No Are you DNR?: No Advance Directives: No Advance Directives Information Provided: Yes Do you have a plan to hurt others: No Plan Recently lost weight without trying: No Eating poorly because of decreased appetite: No Nutrition Risks: No Nutritional Risk Patient : No FDLMP: 12/11/2024 : No Poor oral hygiene: Yes Current occupational status: disabled Current occupation: rt hand Meds Allergies Allergy/AdvReac Type Severity Reaction Status Date / Time aspirin (From ASPIRIN AdvReac Unknown RASH Verified 01/18/25 23:07 REGIMEN GARRETT/CALCIUM) Active Medications: Current Medications Hydromorphone HCl (Hydromorphone Hcl 0.5 Mg/0.5 Ml Syringe) 0.5 mg IVPUSH Q3H PRN; Protocol PRN Reason: Pain, Severe (Pain Scale 7-10) Acetaminophen (Ofirmev) 1,000 mg in 100 mls @ 400 mls/hr IV Q6H PRN PRN Reason: Pain, Mild (Pain Scale 1-3) Dextrose/Lactated Ringer's (D5lr) 1,000 mls @ 125 mls/hr IVCONT .Q8H [facility] Last Admin: 01/19/25 04:44 Dose: 125 mls/hr Metronidazole (Flagyl) 500 mg in 100 mls @ 100 mls/hr IV Q8H [facility] Melatonin (Melatonin 3 Mg Tablet) 6 mg PO BEDTIME PRN PRN Reason: Insomnia Ondansetron HCl (Ondansetron Hcl 4 Mg/2 Ml Vial) 4 mg IVPUSH QID PRN PRN Reason: Nausea Sodium Chloride (0.9 % Sodium Chloride Flush 3 Ml Syringe) 3 ml IVFLUSH QSHIFT [facility] Last Admin: 01/19/25 07:38 Dose: Not Given Home Medications ?Medication ?Instructions ?Recorded ?Confirmed ?Last Taken ?Type albuterol sulfate 90 mcg/actuation 2 puff inhalation Q ID PRN asthma 01/19/25 01/19/25 Unknown History aerosol inhaler (Ventolin HFA) multivitamin 1 tab PO DAILY 01/19/2512/29 Unknown History Exam Height,Weight and Vital Signs: Height 5 ft 2 in Weight 104.3 kg Last Vital Signs Temp 97.2 F 01/19/25 08:42 Pulse 86 01/19/25 08:42 Resp 17 01/19/25 08:42 BP 143/70 H 01/19/25 08:42 Pulse Ox 99 01/19/25 08:42 O2 Del Method Room Air 01/19/25 08:42 Pertinent Lab Results Pertinent Lab Results: Laboratory Tests 01/18/25 01/19/25 23:31 01:26 WBC 10.7 RBC 5.05 Hgb 13.3 Hct 40.7 MCV 80.6 MCH 26.3 L MCHC 32.7 RDW 14.4 Plt Count 239 MPV 10.8 Immature Gran % (Auto) 0.5 H Neut % (Auto) 63.4 Lymph % (Auto) 27.1 [place] % (Auto) 6.4 Eos % (Auto) 2.2 Baso % (Auto) 0.4 Lymph # (Auto) 2.9 [place] # (Auto) 0.7 Eos # (Auto) 0.2 Baso # (Auto) 0.0 Abs Immat Gran (auto) 0.05 H Absolute Neuts (auto) 6.8 Absolute Nucleated RBC 0.000 Nucleated RBC % (auto) 0.0 Sodium 143 Potassium 3.7 Chloride 110 H Carbon Dioxide 26 Anion Gap 11 L BUN 11 Creatinine 0.74 Estim Creat Clear Calc 123.7 Estimated GFR > 60 Random Glucose 87 Calcium 9.0 D Total Bilirubin 0.2 AST 23 ALT 20 Alkaline Phosphatase 70 Total Protein 7.4 Albumin 4.1 Lipase 23 Beta HCG, Quant < 2 Urine Color Yellow Urine Appearance Turbid Urine pH 5.5 Ur Specific [place] 1.025 Urine Protein 100 (2+) H Urine Glucose (UA) Negative Urine Ketones Trace Urine Blood Large (3+) H Urine Nitrite Negative Ur Leukocyte Esterase Small (1+) H Urine RBC >20 H Urine WBC 21-50 H Ur Squamous Epith Cells >20 Other Crystals Present Urine Bacteria 4+ Hyaline Casts 0-2 Documented by User: Manjula Gregory DO 01/19/25 14:16 PMFSH Past Medical History Medical History Scalp cyst Asthma Legally blind Hermansky-Pudlak syndrome Family History Family history of problems with anesthesia: No Surgical History History of Problems with Anesthesia: No Social History Social History Household Members: Children Housing: Apartment Are you a primary primary care md to a significant other at home: No Do you presently have visiting nurse or other home services: No Alcohol intake: never Patient Tobacco Use Status: Never used Tobacco Smoked in Last 30 Days: No Use of substances other than those prescribed or required for medical reasons: No Have you been hit, kicked, punched, or otherwise hurt by someone within the past year? If so, by whom?: No Do you feel safe in your current relationship?: Yes Is there a partner from a previous relationship who is making you feel unsafe now?: No Are you made to feel afraid or neglected: No Are you DNR?: No Advance Directives: No Advance Directives Information Provided: Yes Do you have a plan to hurt others: No Plan Recently lost weight without trying: No Eating poorly because of decreased appetite: No Nutrition Risks: No Nutritional Risk Patient : No FDLMP: 12/11/2024 : No Poor oral hygiene: Yes Current occupational status: disabled Current occupation: rt hand Meds Allergies Allergy/AdvReac Type Severity Reaction Status Date / Time aspirin (From ASPIRIN AdvReac Unknown RASH Verified 01/18/25 23:07 REGIMEN GARRETT/CALCIUM) Home Medications ?Medication ?Instructions ?Recorded ?Confirmed ?Last Taken ?Type albuterol sulfate 90 mcg/actuation 2 puff inhalation Q ID PRN asthma 01/19/25 01/19/25 Unknown History aerosol inhaler (Ventolin HFA) multivitamin 1 tab PO DAILY 01/19/2512/29 Unknown History Exam Exam Date and Time: 01/19/25 1410 Airway TM Dist: >3cm Neck ROM: Limited Loose/Missing/Broken Teeth: No (patient denies any loose or broken teeth) Heart: S1S2 Lungs: CTAB Assessment and Plan Assessment Anesthesia Assessment: Anesthesia Plan Discussed and Chart Reviewed Final Anesthetic Review Family History of Problems with Anesthesia: No History of Problems with Anesthesia: No NPO: Yes ASA Class: III Final Preanesthetic Review: No Changes in Pt Med Stat, Meds/Allgs Chart Reviewed, Consent Obtained/Reviewed and Anes Risks/Benef Reviewed Patient Risk: Intermediate Procedure Risk: Intermediate Anesthetic Plan Anesthetic Plan: GA and Agree w/ Assess. and Plan Disposition: Standard PACU
--- NOTE | 2025-01-19 14:18 | PC.NURSE ---
2nd units of platelets infusing. Next set of VS due at 2:23pm. RN notified anesthesia and [employer]LE[employer] ENGINEER to complete documentation in [facility]. Per anesthesia, Dr. Coronado, platelet infusion slowed down pending start of surgery.
--- NOTE | 2025-01-19 14:23 | PC.NURSE ---
patient off unit for procedure with the platelets infusing. to be finished and vitals to be taken in the or. no s/sx of transfusion reaction.
--- NOTE | 2025-01-19 14:39 | PC.NURSE ---
platelets finished at [address] Coronado
--- NOTE | 2025-01-19 15:21 | W.PM.OPN ---
Operative Note Operative Note Date of Service: 01/19/25 Narrative: Preoperative diagnosis: Acute appendicitis Postoperative diagnosis: Same Procedure: Laparoscopic appendectomy Surgeon: Ramon Rodríguez MD Senior [employer] Consultant: Lili Eaton PA-C, REBECA Powell Anesthesia: General endotracheal Indications for procedure: 34-year-old female patient presenting with complaints of right lower quadrant abdominal pain found on examination to be tender in the right lower quadrant. Workup revealed an inflamed appendix by CT. Operative findings: Minimally inflamed appendix. Evidence of thickening of the cecum perhaps an area of colitis Specimen: Appendix Estimated blood loss: Less than 2 mL Complications: None Procedure details: Patient was brought to the OR and placed in a supine position. After administering general anesthesia the patient's abdomen was prepped with ChloraPrep and draped in a sterile fashion. A surgical time-out was called and consent confirmed. Patient received preoperative antibiotics and Venodyne boots were in place. Local anesthesia consisting of 0.75% Sensorcaine with epinephrine was infiltrated in periumbilical region. A 5 mm incision was made below the umbilicus and carried down through subcutaneous tissue. A Veress needle was then inserted while elevating abdominal cavity with towel clips. After a positive drop test the abdomen was insufflated to a pressure of 15 mm of mercury. The Veress needle was removed and a 5 mm trocar inserted. The camera was then inserted in the abdomen explored. A 2nd 5 mm trocars placed in the lower midline. A 12 mm trocar was then placed in the left lower quadrant. The patient was then placed in a Trendelenburg position and rotated to the left. The appendix was identified in the right lower quadrant and brought up using blunt dissecting clamps. The mesentery of the appendix was then divided using the LigaSure. The appendiceal artery was cauterized and divided using the LigaSure. Dissection was continued down to the base of the cecum. An Endo-HANNY stapler with a purple reload was then used to divide the appendix at the base with the cecum. The appendix was then placed in Endo-Catch bag and brought out through the left lower quadrant incision. The abdomen was then irrigated with saline solution and suctioned dry. Wounds were checked for hemostasis. CO2 was then evacuated from the abdominal cavity and all trocars removed. Skin was closed at all incisions using a subcuticular 4-0 Polysorb suture. Steri-Strips 2 x 2 gauze and Tegaderm were then applied. The patient tolerated the procedure well. Sponge, instrument, needle counts reported as correct. The patient was transferred to PACU in stable condition.
[2025-01-19] MEDS: 0.9 % Sodium Chloride Flush 3 ML SYRINGE IVFLUSH (18:30)
[2025-01-20] MEDS: Dextrose 5 % and Lactated Ring 1,000 ML 125 ML IVCONT (00:51)
[2025-01-20 02:44] VITALS: BP 143/64; PULSE 62; RESP 18; TEMP 36.3; O2SAT 99
[2025-01-20] MEDS: 0.9 % Sodium Chloride Flush 3 ML SYRINGE IVFLUSH (07:15)
--- NOTE | 2025-01-20 07:29 | P.PNGS_ITS ---
Subjective Subjective Date of Service: 01/20/25 Interval history: No events overnight. C/o incisional and mild diffuse pain but comfortable with analgesics. Has been OOB to bathroom multiple times. Tolerated small amount of solids last night. Passing flatus. Physical Exam 2 Vital Signs: Vital Signs: Last Vital Signs Temp 97.3 F 01/20/25 02:44 Pulse 62 01/20/25 02:44 Resp 18 01/20/25 02:44 BP 143/64 H 01/20/25 02:44 Pulse Ox 99 01/20/25 02:44 O2 Del Method Room Air 01/20/25 02:44 BMI result Body Mass Index 40.0 Const: General: comfortable, no acute distress and alert O rientation/consciousness: patient oriented x3 Resp: Effort & Inspection: normal respiratory effort GI: Other: soft, nondistended mild incisional tenderness dressings intact Palpation (GI): no guarding Percussion: Yes normal to percussion Skin: General skin exam: no rashes or lesions noted Neuro: General: patient oriented x3 and moves all extremities Objective Data Active Medications Albuterol Sulfate (Albuterol Sulfate 90 Mcg 8 Gm Inhaler) 2 puff INHALE QID PRN PRN Reason: asthma Ceftriaxone Sodium (Ceftriaxone Sodium 2 Gm Vial) 2 gm IVPUSH Q24H [facility] Last Admin: 01/20/25 06:21 Dose: 2 gm Documented By: ROBERTO Hydromorphone HCl (Hydromorphone Hcl 0.5 Mg/0.5 Ml Syringe) 0.5 mg IVPUSH Q3H PRN; Protocol PRN Reason: Pain, Severe (Pain Scale 7-10) Last Admin: 01/20/25 07:14 Dose: 0.5 mg Documented By: BLANCA Acetaminophen (Ofirmev) 1,000 mg in 100 mls @ 400 mls/hr IV Q6H PRN PRN Reason: Pain, Mild (Pain Scale 1-3) Dextrose/Lactated Ringer's (D5lr) 1,000 mls @ 125 mls/hr IVCONT .Q8H [facility] Last Admin: 01/20/25 00:51 Dose: 125 mls/hr Documented By: ROBERTO Influenza Virus Vaccine (Flu Vacc [id number](6mo Up)/Pf 0.5 Ml Syringe) 0.5 ml IM .ONCE ONE Stop: 01/20/25 09:01 Melatonin (Melatonin 3 Mg Tablet) 6 mg PO BEDTIME PRN PRN Reason: Insomnia Ondansetron HCl (Ondansetron Hcl 4 Mg/2 Ml Vial) 4 mg IVPUSH QID PRN PRN Reason: Nausea Last Admin: 01/19/25 12:51 Dose: 4 mg Documented By: ANUJ Sodium Chloride (0.9 % Sodium Chloride Flush 3 Ml Syringe) 3 ml IVFLUSH QSHIFT [facility] Last Admin: 01/20/25 07:15 Dose: 3 ml Documented By: BLANCA Labs 01/18/25 23:31 01/18/25 23:31 Labs: Laboratory Results - last 24 hr 01/19/25 09:51 Blood Type A Positive Antibody Screen NEGATIVE Procedures Date of Service Date of Service: 01/20/25 Progress Note: A&P Assessment and plan (1) Hermansky-Pudlak syndrome: Status: Acute (2) Acute appendicitis: Status: Acute (3) S/P laparoscopic appendectomy: Status: Acute Plan POD #1 s/p lap appy. Doing well post op. VSS. Abd exam benign with appropriate post op tenderness, dressings intact, mild staining LLQ. Encouraged increasing activity, incentive spirometry. Will reassess later today. If tolerating solid diet and OOB with out difficulty with good pain control, stable for dc to home today. Cont rocephin for UTI. Patient comfortable with plan. Time Spent With Patient Time: Total time managing care of this patient today ____ minutes. Quality Stroke Does the patient have a stroke diagnosis?: No VTE Prior VTE?: No VTE Risk Level:: Surgical - moderate VTE Device Contraindication: N/A - Device Ordered VTE Drug Contraindication: Treatment Not Indicated
[2025-01-20 08:00] VITALS: BP 136/68; PULSE 64; RESP 18; TEMP 36.8; O2SAT 99
--- NOTE | 2025-01-20 08:23 | HO.POSTANES ---
Post Anesthesia Evaluation Post Anesthesia Evaluation Date of Service: 01/20/25 Vital Signs: Vital Signs Temp Pulse Resp BP Pulse Ox O2 Del Method 01/20/25 08:00 98.3 F 64 18 136/68 99 Room Air 01/20/25 02:44 97.3 F 62 18 143/64 H 99 Room Air Anesthesia: General Mental Status: Awake Pain Control: Satisfactory Nausea/Vomiting: None Hydration: Adequate Anesthesia-Related Issues: No Anes. Related Issues
--- NOTE | 2025-01-20 10:54 | MHC.CM.PN ---
Addendum entered by Aleida Parish RN 01/20/25 11:10: Patient cleared for dc home self care. Private transport. Addendum entered by Aleida Parish RN 01/20/25 10:55: Patient also connected w/ [facility], who provides assistance PRN. Original Note: Patient lives in a home w/ her two children. She is independent w/ ADL's. Legally blind and uses a white cane when ambulating. PCP Geraldine Reyes MD No HCP. CM provided education and offered assistance. Patient declined. DP: Home self care, potentially later today. Mother to transport. CM will continue to follow.
[2025-01-20 11:40] VITALS: BP 123/58; PULSE 64; RESP 16; TEMP 37.7; O2SAT 97
--- NOTE | 2025-01-20 12:29 | P.DS_ITS ---
DS: Providers Provider Date of Service: 01/20/25 Date of admission: 01/19/25 03:36 Date of discharge: 01/20/25 Primary care physician: Geraldine Reyes MD Attending physician on admission: Ramon Rodríguez Consults: 01/19/25 07:55 Consult to Hematology / Oncology Stat Consulting Provider: [facility] [place] Oncology/Hematology Reason for consultation: Possible hemophilia, acute appendicitis Attending physician on discharge: Ramon Rodríguez DS: Diagnosis Discharge Diagnosis (1) Hermansky-Pudlak syndrome: Status: Acute (2) Acute appendicitis: Status: Acute (3) S/P laparoscopic appendectomy: Status: Acute DS: Summary Hospital Course Hospital Course: HPI AT ADMISSION: Reina Agrawal is a 34 year old female with PMH of hypertension, legally blind, intermittent asthma, who presented to the ED with complaints of right sided abd pain. She reports the pain started just above her umbilicus two days ago and then migrated to her RLQ yesterday. She initially thought she was hungry and then had to move her bowels but she had a bowel movement without improvement in her pain. The pain gradually worsened and she arranged for a metal baler and came to the ED for evaluation. Work up included CBC, BMP, LFTs which were essentially unremarkable. CT scan abd pelvis was obtained which showed a mildly dilated appendix with mild surrounding inflammatory changes suggestive of acute appendicitis. She feels somewhat improved this morning after pain meds. She denies fevers, chills, nausea, vomiting, diarrhea, similar prior episodes of pain. She denies prior abdominal surgery. HOSPITAL COURSE: The patient was admitted to the surgical service for further treatment of the acute appendicitis. She elected to proceed with laparoscopic appendectomy. She was added onto the OR schedule for that day. She has history of Hermansky-Pudlak Syndrome and therefore hematology consult was obtained. They recommended she receive platelet transfusion prophylactically just prior to surgery which was given. On 01/19/25, a laparoscopic appendectomy was performed by Dr. Rodríguez without complication. The patient tolerated the procedure well. She had an uncomplicated recovery course. On POD #1, she felt well and was tolerating a solid diet without nausea or vomiting, had good pain control and was ambulating without difficulty. She was hemodynamically stable. Her abdomen was benign with appropriate post op tenderness and clean and intact dressings. She felt ready for discharge. She was discharged to home on 01/20/25 in stable condition. She is to follow up in the office in 1 week. She had a UTI on UA on admission and she was discharged on course of Macrobid. Status at Discharge Functional status at discharge: independent ambulation Overall status at discharge: patient is progressing back to baseline Time Attestation Discharge Coordination Time (in mins): 25 Quality: Safe Use of Opioids Does Pt have an Active Cancer Diagnosis on the Problem List?: No Quality: Stroke Does the patient have a stroke diagnosis?: No Physical Exam Vital Signs: Vital Signs: Last Vital Signs Temp 99.8 F 01/20/25 11:40 Pulse 64 01/20/25 11:40 Resp 16 01/20/25 11:40 BP 123/58 L 01/20/25 11:40 Pulse Ox 97 01/20/25 11:40 O2 Del Method Room Air 01/20/25 11:40 BMI result Body Mass Index 40.0 Const: General: comfortable, no acute distress and alert Orientation/consciousness: patient oriented x3 Resp: Effort & Inspection: normal respiratory effort GI: Inspection: No distended and Yes incision (dressings intact ) Palpation (GI): Soft to palpation, Tenderness to palpation present (GI) (mild incisional) and no guarding Percussion: Yes normal to percussion Skin: Other: warm and dry General skin exam: no rashes or lesions noted Neuro: General: patient oriented x3 and moves all extremities DS: Data Data Completed and Pending Pending studies at discharge: Pending at discharge 01/19/25 15:03 Surgical [PTH] Routine Labs on day of discharge: Laboratory Results - last 24 hr 01/19/25 09:51 Blood Type A Positive Antibody Screen NEGATIVE Discharge Plan Discharge Anticipated Discharge Date/Time: 01/20/25 09:39 Patient Disposition: Home, Self-Care Discharge Diagnosis: acute appendicitis Referrals: Geraldine Reyes MD [Primary Care Provider, Internal Medicine] - 1 Week Ramon Rodríguez MD [Physician, General Surgery] - 1 Week Discharge Medications: New nitrofurantoin monohyd/m-cryst [Macrobid] 100 mg capsule 100 mg PO BID Qty: 6 0RF Rx Instructions: must administer with a meal/food docusate sodium [Colace] 100 mg capsule 100 mg PO BID PRN (Reason: constipation) Qty: 30 0RF oxycodone 5 mg tablet 5 mg PO Q4H PRN (Reason: pain (scale score 7-10)) Qty: 24 0RF Rx Instructions: Partial Fill upon patient request. Continued albuterol sulfate [Ventolin HFA] 90 mcg/actuation HFA aerosol inhaler 2 puff INHALATION QID PRN (Reason: asthma) multivitamin Tablet 1 tab PO DAILY Discharge Orders: Discharge Order (Routine); Ordered 01/20/25 Ordered By: Lili Eaton Diet: Advance to usual diet Activity on Discharge: No heavy lifting Stand Alone Forms: Patient Portal Discharge page Print Language: [place]guill[place] Activity Restrictions/Additional Instructions: If the incision area is tender, you may apply an ice pack for short intervals (No more than 20 minutes on, followed by at least 20 minutes off). Do not apply heat. Do not use creams, lotions, or topical antibiotics. Ok to shower. Remove clear dressings 3 days following your procedure. You have steri strips (small white strips) covering your incision- these will fall off ~1 week. No heavy lifting (>10lbs) or strenuous activity! Take Tylenol Extra-strength 1-2 tabs every 6 hours for the first day, then as needed. Oxycodone every 6-8 hours as needed for pain. Colace 100 mg every day as needed for constipation. Follow up in office with Dr. Rodríguez in 1 week. ([phone]) Call Your Doctor If: -Your temperature exceeds 101.5? F -You experience excessive pain or swelling -You have an unexpected reaction to medication -You have excessive bleeding -You experience continued vomiting/nausea -Your incision begins to separate -Your incision shows signs of infection such as increased redness, swelling, excessive pain, drainage (light blood or clear fluid is normal) or heat Care Plan Goals: Return to baseline health and resume normal activities following recovery period. Health Concerns: hermansky-pudlak syndrome acute appendicitis UTI Plan of Treatment: s/p laparoscopic appendectomy platelets antibiotics Assessment: Doing well post op
== END 2025-01-20 13:34 | disposition home or self-care (01) | DRG 234 ==
LOC: HO.ED 01-19 03:31 → HO.EDOVER 01-19 03:46 → HO.S3 01-19 07:43
PROVIDERS: Admitting Provider Surgery; Emergency Provider Emergency Medicine; PCP Internal Medicine; Visit Provider Surgery
PROC: 0DTJ4ZZ Resection of Appendix, Percutaneous Endoscopic Approach (ICD-10-PCS; CPT 44970; principal; 2025-01-19 14:40)
DX: K35.80 Unspecified acute appendicitis (principal); E70.331 Hermansky-Pudlak syndrome; N39.0 Urinary tract infection, site not specified; K52.9 Noninfective gastroenteritis and colitis, unspecified; H54.8 Legal blindness, as defined in USA; J45.20 Mild intermittent asthma, uncomplicated; Z79.899 Other long term (current) drug therapy
CPT/HCPCS: 44970; 36415; 74177; 80053; 81001; 83690; 84702; 85025; 86850; 86900; 86901; 87086; 88304; 99221; 99285; J0616; J0696; J1100; J1171; J1596; J1836; J2003; J2250; J2270; J2405; J2704; J3010; P9073; Q9967

== ENCOUNTER → 2025-01-19 01:06 | Outpatient (BNV) | payer MEDICAID, SELFPAY | PROVIDERS: Emergency Provider Emergency Medicine; PCP Internal Medicine; Visit Provider Radiology Diagnostic Radiology | DX: K35.890 Other acute appendicitis without perforation or gangrene (principal) | CPT/HCPCS: 74177 ==

== ENCOUNTER → 2025-01-19 03:36 | Outpatient (BNV) | payer MEDICAID, SELFPAY | PROVIDERS: Admitting Provider Surgery; Emergency Provider Emergency Medicine; PCP Internal Medicine; Visit Provider Physician Assistant Surgical | DX: E70.331 Hermansky-Pudlak syndrome (principal); K35.80 Unspecified acute appendicitis; Z90.49 Acquired absence of other specified parts of digestive tract | CPT/HCPCS: 44970; 99024; 99222 ==

== ENCOUNTER → 2025-01-19 03:36 | Outpatient (BNV) | payer MEDICAID, SELFPAY | PROVIDERS: Admitting Provider Surgery; Emergency Provider Emergency Medicine; PCP Internal Medicine; Visit Provider Internal Medicine Medical Oncology | DX: E70.331 Hermansky-Pudlak syndrome (principal) | CPT/HCPCS: 99222 ==

== ENCOUNTER 2025-01-28 09:43 | Outpatient (AMB) | payer MEDICAID, SELFPAY ==
--- NOTE | 2025-01-28 09:44 | MHC.OFFVIS ---
Vital Signs 01/28/25 09:55 Weight 220 lb BP 135/79 Blood Pressure Location Rt brachial Position Sitting Pulse 90 Intake Visit Reasons: s/p appy Intake Note: Patient here s/p Laparoscopic appendectomy. Patient c/o: no concerns. Steri strips removed without incident. Taking tylenol as needed. Surgery: () 01-19-2025 Fine Jewelry Sales Associate Required: No Accompanied by: Mother Allergies aspirin (From ASPIRIN REGIMEN GARRETT/CALCIUM) Adverse Reaction (Unknown, Verified 01/28/25 09:55) RASH HPI Comments Details: 34 year old female who underwent laparoscopic appendectomy on 01/19/[address] Rodríguez for acute appendicitis. She tolerated the procedure well and was discharged to home the following day. She reports she overall feels improved. She took oxycodone for the first two days following the surgery and now just takes tylenol as needed. She has been taking colace as her stools have been a little more firm then normal but she is going daily. She is tolerating a solid diet without nausea or vomiting. She reports itching at the incision sites but no other concerns. [facility] Medical History (Updated 01/28/25 @ 00:01 by Ryan Jackman) Scalp cyst Asthma Legally blind Hermansky-Pudlak syndrome Surgical History (Updated 01/28/25 @ 08:33 by ZIGGY Flower) History of laparoscopic appendectomy (01/19/25) Social History Household Members: Children Housing: Apartment Are you a primary intensive care medicine specialist to a significant other at home: No Do you presently have visiting nurse or other home services: No Alcohol intake: never Patient Tobacco Use Status: Never used Tobacco service: No Current occupational status: disabled Current occupation: rt hand Review of Systems Const All systems reviewed & are unremarkable except as noted in HPI and below Physical Exam Vital Signs: Last Vital Signs Pulse 90 01/28/25 09:55 BP 135/79 01/28/25 09:55 Const General: comfortable, no acute distress and alert Orientation/consciousness: patient oriented x3 Resp Effort & Inspection: normal respiratory effort and able to speak in complete sentences GI Other: corpulent abdomen incision sites well healed, no erythema or edema , mild tenderness at left lateral incision Inspection: No distended Palpation (GI): no guarding Skin General skin exam: no rashes or lesions noted Neuro General: patient oriented x3 and moves all extremities Results Reviewed Results Reviewed: Vermiform appendix, appendectomy: Mild acute appendicitis Assessment & Plan Assessment & Plan (1) S/P laparoscopic appendectomy: Code(s): Z90.49 - Acquired absence of other specified parts of digestive tract Category: Surgical (2) Hermansky-Pudlak syndrome: Code(s): E70.331 - Hermansky-Pudlak syndrome Category: Medical Plan 34 year old female s/p laparoscopic appendectomy on 01/19/[address] Rodríguez for acute appendicitis. She is doing very well post operatively and has no concerns. Her abdomen is benign with clean, well healed incisions. She was instructed on continued lifting restrictions of >10lbs for the next 3 weeks. She can follow as needed. All questions answered. Coding Level of Care Code Global (61669) Diagnoses S/P laparoscopic appendectomy Z90.49 Hermansky-Pudlak syndrome E70.331
[2025-01-28 09:55] VITALS: BP 135/79; PULSE 90
--- OUTSIDE RECORDS SUMMARY | 2025-01-28 10:50 | XMS_ITS | Encounter Summary ---
Author Organization [facility] Address [address] [place] [address] Phone Care Team Providers Care Coagulating Drying Supervisor Name Role Phone Madhuri Martinez MD Primary Care Provider Unavailabl e Encounter Details Date Type Department Care Team (Late st Contact Info) Description 10/27/2013 Documentation EM Family Medicine [address] [place] [address] Family Medicine, Physician [address] [place], [place] [phone] Social History Tobacco Use Types Packs/Day Years [...] on filedocumented in this encounter Care Teams Coagulating Drying Supervisor Relationship Specialty Start Date End Date Madhuri Martinez MD PCP - General 12/07/16 documented as of this encounter
--- OUTSIDE RECORDS SUMMARY | 2025-01-28 10:50 | XMS_ITS | Encounter Summary ---
Author Organization [facility] Address [address] [place] [address] Phone Care Team Providers Care Budget Officer Name Role Phone Madhuri Martinez MD Primary Care Provider Unavailabl e Encounter Details Date Type Department Care Team (Late st Contact Info) Description 12/13/2016 Conversion Encounter [facility] - [address] [address] Social History Tobacco Use Types Packs/Day Years [...] on filedocumented in this encounter Care Teams Budget Officer Relationship Specialty Start Date End Date Madhuri Martinez MD PCP - General 12/07/16 documented as of this encounter
--- OUTSIDE RECORDS SUMMARY | 2025-01-28 10:50 | XMS_ITS | Encounter Summary ---
Author Organization [facility] Address [address] [place] [address] Phone Care Team Providers Care Hand Inserter Operator Name Role Phone Madhuri Martinez MD Primary Care Provider Unavailabl e Encounter Details Date Type Department Care Team (Late st Contact Info) Description 10/05/2013 Documentation EM Family Medicine [address] [place] [address] Family Medicine, Physician [facility] [place], [place] [phone] Social History Tobacco Use Types Packs/Day Years [...] on filedocumented in this encounter Care Teams Hand Inserter Operator Relationship Specialty Start Date End Date Madhuri Martinez MD PCP - General 12/07/16 documented as of this encounter
--- OUTSIDE RECORDS SUMMARY | 2025-01-28 10:50 | XMS_ITS | Encounter Summary ---
Author Organization [facility] Address [address] [place] [address] Phone Care Team Providers Care Pipeline Dispatcher Name Role Phone Madhuri Martinez MD Primary Care Provider Unavailabl e Encounter Details Date Type Department Care Team (Late st Contact Info) Description 10/24/2011 Documentation EM Family Medicine [address] [place] [address] Family Medicine, Physician [address] [place], [place] [phone] Social History Tobacco Use Types Packs/Day Years [...] on filedocumented in this encounter Care Teams Pipeline Dispatcher Relationship Specialty Start Date End Date Madhuri Martinez MD PCP - General 12/07/16 documented as of this encounter
--- OUTSIDE RECORDS SUMMARY | 2025-01-28 10:50 | XMS_ITS | Clinical Summary ---
Author Organization [facility] Address [address] [place] [address] Phone Care Team Providers Care Coding Compliance Auditor Name Role Phone Madhuri Martinez MD Primary [...] complete this topic Procedures * Due to [place] mSnap law, this organization might not be sharing sensitive test results. Procedure Name Priority Date/Time Associated Diagnosis Comments CHLAMYDIA AND GONORRHEA, AMPLIFIED Routine 10/05/2013 2:21 PM EDT from Last 3 Months or Most Recently Relevant to Health Maintenance Results * Due to [place] mSnap law, this organization might not be sharing sensitive test results. * Chlamydia and Gonorrhoea, Amplified (10/05/2013 2:21 PM EDT) [facility] URINE GC AMP PROBE NEGATIVE [facility] Comment: NO NEISSERIA GONORRHOEAE RNA DETECTED IN THIS PATIENT'S SAMPLE. (REFERENCE RANGE/NORMAL VALUE: NOT DETECTED) NOTE: This test uses conditioning machine operator-mediated amplification method to detect rRNA from C.Trachomatis [...] risk of sexual abuse. Consult the [facility] if needed. Contact phone number . Therapeutic failure or success cannot be determined with the Aptima Combo2 assay since nucleic acid may persist following appropriate antimicrobial therapy. The Centers for Disease Control and Prevention (CDC) recommends confirmatory retesting using culture or a different nucleic acid amplification test when positive results occur, if indicated. Testing performed or reported by [facility], a Service of [facility], [address] [place] [address] Darell Morgan, Volumetric Weigher URINE CHLAMYDIA AMP PROBE NEGATIVE [facility] Comment: NO CHLAMYDIA TRACHOMATIS RNA DETECTED IN THIS PATIENT'S SAMPLE. (REFERENCE RANGE/NORMAL VALUE: NOT DETECTED) 10/05/2013 2:21 PM EDT Narrative [facility] - 10/05/2013 2:21 PM EDT URINE CHLAMYDIA GC AMP PROBE us Yunier Oviedo MD LAB MICROBIOLOGY - GENERAL ORDER SVETLANA Final Result [facility] [address] [place] [address], from Last 3 Months or Most Recently Relevant to Health Maintenance Care Teams Coding Compliance Auditor Relationship Specialty Start Date End Date Madhuri Martinez MD PCP - General 12/07/16
== END 2025-01-28 10:06 | disposition home or self-care (01) ==
LOC: HO.HGS 09:44
PROVIDERS: PCP Internal Medicine; Visit Provider Physician Assistant Surgical
DX: Z90.49 Acquired absence of other specified parts of digestive tract (principal); E70.331 Hermansky-Pudlak syndrome
CPT/HCPCS: 99024

== ENCOUNTER → 2025-01-28 09:43 | Outpatient (BNVA) | payer MEDICAID, SELFPAY | PROVIDERS: PCP Internal Medicine; Visit Provider Physician Assistant Surgical | DX: Z98.890 Other specified postprocedural states (principal); Z90.49 Acquired absence of other specified parts of digestive tract; E70.331 Hermansky-Pudlak syndrome | CPT/HCPCS: 99212 ==

== ENCOUNTER 2025-03-31 00:37 | Emergency (ER) | payer MEDICAID, SELFPAY ==
--- NOTE | ~2025-03-31 | XR_ITS ---
CLINICAL HISTORY: cp 2 view chest x-ray Comparison: None provided Findings: No consolidation or pleural effusion. Heart size is normal. No acute fracture. IMPRESSION: 1. No acute findings. This document has been electronically signed by: Audrey Schulz MD on 03/31/2025 01:35:33
--- NOTE | 2025-03-31 00:38 | ECG_ITS ---
Test Reason : CP Blood Pressure : */* mmHG Vent. Rate : 101 BPM Atrial Rate : 101 BPM P-R Int : 154 ms QRS Dur : 80 ms QT Int : 340 ms P-R-T Axes : 55 42 43 degrees QTcB Int : 440 ms Sinus tachycardia Otherwise normal ECG No previous ECGs available Referred By: Generic ED Physician Electronically Signed By: CHRISTINA CHIU
[2025-03-31 00:47] VITALS: BP 154/81; PULSE 88; RESP 18; TEMP 36.4; O2SAT 100; BMI 41.0
--- NOTE | 2025-03-31 00:52 | ED.CHESTPAIN ---
HPI - Chest Pain General Chief Complaint: Chest Pain Stated Complaint: CP/HBP Time Seen by Provider: 03/31/25 03:32 History of Present Illness ED Provider: Luisa BARNARD narrative: The patient is a 34-year-old female who says that this evening at around 10:00 she felt a sense of tightness in her chest. She used her albuterol inhaler. She has a history of asthma and sometimes feels tightness in her chest with her asthma. She and her partner then went out to [employer]. When she returned home after eating out she felt slightly dizzy and checked her blood pressure. She says that her systolic blood pressure was something like 199 and her heart rate was close to 100. She was concerned about how high her blood pressure was and came to the emergency room. While waiting to be seen in the emergency room she is feeling somewhat better. She still feels a slight sense of discomfort in her left upper chest. She has had no pain or swelling in her legs. She is a nonsmoker. She is not on any hormonal therapy (she has a Norplant device placed 7 years ago, she has never had a removed but she assumes it is no longer effective). She has had no pain or swelling in her legs. At the time that I saw the patient she has been waiting to be seen for almost 3 hours. She was feeling very tired and had developed a headache. She said that her primary complaints of the time that I was speaking to her were her fatigue and her headache. Related Data Home Medications ?Medication ?Instructions ?Recorded ?Confirmed albuterol sulfate 90 mcg/actuation 2 puff inhalation QID PRN asthma 01/19/25 01/19/25 aerosol inhaler (Ventolin HFA) multivitamin 1 tab PO DAILY 01/19/25 01/19/25 Previous Rx's ?Medication ?Instructions ?Recorded docusate sodium 100 mg capsule 100 mg PO BID PRN constipation #30 01/20/25 (Colace) caps nitrofurantoin 100 mg PO BID #6 caps 01/20/25 monohydrate/macrocrystals 100 mg capsule (Macrobid) Allergies Allergy/AdvReac Type Severity Reaction Status Date / Time aspirin (From ASPIRIN AdvReac Unknown RASH Verified 03/31/25 00:51 REGIMEN GARRETT/CALCIUM) Review of Systems Review of Systems: Yes all other systems are reviewed and are negative PMFSH Past Medical History Medical History (Updated 03/31/25 @ 03:55 by Dave Moran MD) Scalp cyst Asthma Legally blind Hermansky-Pudlak syndrome Surgical History (Updated 01/28/25 @ 08:33 by ZIGGY Flower) History of laparoscopic appendectomy (01/19/25) Social History Social History Household Members: Children Housing: Apartment Are you a primary patient care nursing assistant to a significant other at home: No Do you presently have visiting nurse or other home services: No Alcohol intake: never Patient Tobacco Use Status: Never used Tobacco Smoked in Last 30 Days: No Use of substances other than those prescribed or required for medical reasons: No Any prior treatment program specific to substance use: No Advance Directives: No Advance Directives Information Provided: No Patient : No service: No Current occupational status: disabled Current occupation: rt hand Physical Exam Vital Signs: Vital Signs: Last Vital Signs Temp 98.4 F 03/31/25 05:28 Pulse 80 03/31/25 05:28 Resp 14 03/31/25 05:28 BP 124/62 03/31/25 05:28 Pulse Ox 97 03/31/25 05:28 O2 Del Method Room Air 03/31/25 05:28 BMI result Body Mass Index 41.0 Const: Other: The patient was lying on the stretcher with her eyes closed. She was awake but seemed tired. She did not seem in any respiratory distress or obvious discomfort. HEENT: Other: The face is symmetrical. ?Mucous membranes moist. Eyes: Other: Pupils are round equal, there is frequent nystagmus Neck: Neck: Yes normal visual inspection and Yes full ROM Chest: Other: The patient reports tenderness with palpation of the left upper sternal border Resp: Effort & Inspection: normal respiratory effort Auscultation: clear to auscultation bilaterally Cardio: Rate: regular rate Rhythm: regular rhythm Heart sounds: S1 normal heart sound present and S2 normal heart sound present GI: Other: Abdomen is soft and nontender Skin: Other: The skin is dry and unremarkable Neuro: Other: The patient was tired but with a normal mental status otherwise. She has frequent nystagmus but her cranial nerves are otherwise unremarkable. She moves her extremities normally and appropriately. Extrem: Other: There is no calf swelling or tenderness. No asymmetry. No peripheral edema. Course Course Course Narrative: Zari Collins DO 03/31/25 0053 Rapid medical screening exam performed. 34 yo F presented to ED for chest pain and dizziness. Started before she fell asleep. Does not appear to be in acute respiratory distress. Patient appears tired. VS stable Cardiac labs ordered. Viral swab ordered. CXR ordered. EKG ordered. Medications Administered Discontinued Medications Generic Name Dose Route Start Last Admin Trade Name Collette PRN Reason Stop Dose Admin Acetaminophen 975 mg 03/31/25 03:44 03/31/25 03:53 Acetaminophen 325 Mg Tablet PO 03/31/25 03:45 975 mg ONCE ONE Administration Ibuprofen 400 mg 03/31/25 03:44 03/31/25 03:54 Ibuprofen 400 Mg Tablet PO 03/31/25 03:45 400 mg ONCE ONE Administration Medical Decision Making Medical Decision Making MDM Narrative: The patient is a 34-year-old with a history of Hermansky-Pudlak syndrome who also has a history of asthma. She says that she has a sense of some tightness in her chest earlier this evening for which she used albuterol. She then went out to eat at [employer]. When she came back from [employer] she checked her blood pressure and it was quite high. She also felt dizzy. She came to the emergency room. While waiting to be seen in the emergency room she has developed a bit of a headache. She is not currently short of breath. She has reproducible chest pain in the left upper chest. She has no signs of a DVT. Overall my impression is that the patient is not seem that ill. I do not have a high suspicion for a pulmonary embolism in his the patient. At the time that I examined her she had an oxygen saturation of 100% with a heart rate of 85 and a normal blood pressure. It was my impression that the primary impetus to come to the emergency room was the high blood pressure that she checked at her home. I think it was this more than any other symptoms. The patient is testing in the emergency room such as it is is unremarkable. An EKG at 0040 shows sinus tachycardia at 101 beats per minute. I believe there are some nonspecific ST and T-wave changes of uncertain significance in a 34-year-old. Her chest x-ray was read as negative. CBC is unremarkable with a white count of 9.8, hemoglobin at 13.7, and a platelet count of 260. Differential is normal. Troponin is undetectable. At the time that I saw the patient she complained primarily of just feeling tired. I do not have a significant suspicion for a pulmonary embolism. I do not think this is an acute coronary syndrome. I think the patient may be discharged to continue her usual medication at home and to return if worse. She should follow up with her PCP. Lab Data 03/31/25 01:03 03/31/25 01:03 Labs: Lab Results 03/31/25 Range/Units 01:03 WBC 9.8 (4.8-10.8) X10*3/uL RBC 5.16 (4.20-5.50) X10*6/uL Hgb 13.7 (12.0-16.0) g/dl Hct 41.8 (37.0-47.0) % MCV 81.0 (80.0-98.0) fL MCH 26.6 L (27.0-33.0) pg MCHC 32.8 (31.0-35.0) g/dl RDW 14.2 (11.0-16.0) % Plt Count 260 (160-400) X10*3/uL MPV 10.1 (9.4-12.3) fL Immature Gran % (Auto) 0.6 H (0.0-0.4) % Neut % (Auto) 64.1 (45-73) % Lymph % (Auto) 25.5 (20-40) % Kenedy % (Auto) 6.7 (2-11) % Eos % (Auto) 2.7 (0-4) % Baso % (Auto) 0.4 (0-2) % Lymph # (Auto) 2.5 (1.2-4.9) X10*3/uL Kenedy # (Auto) 0.7 (0.1-1.2) X10*3/uL Eos # (Auto) 0.3 (0.0-0.4) X10*3/uL Baso # (Auto) 0.0 (0.0-0.2) X10*3/uL Abs Immat Gran (auto) 0.06 H (0.00-0.03) X10*3/uL Absolute Neuts (auto) 6.3 (2.0-8.3) x10*3/uL Absolute Nucleated RBC 0.000 (0.0-0.012) X10*3/uL Nucleated RBC % (auto) 0.0 (0.0-0.2) /100WBC Sodium 144 (135-145) mmol/L Potassium 3.4 (3.3-5.1) mmol/L Chloride 109 H (96-108) mmol/L Carbon Dioxide 22 (22-29) mmol/L Anion Gap 16 (12-20) BUN 14 (9-16) mg/dL Creatinine 1.26 (0.5-1.4) mg/dL Estim Creat Clear Calc 71.6 Estimated GFR 49 Random Glucose 110 (60-115) mg/dL Calcium 9.4 (8.4-10.2) mg/dL Troponin I High Sens < 2.7 (<3.5-17.0) ng/L Influenza Type A (PCR) NEGATIVE (Negative) Influenza Type B (PCR) NEGATIVE (Negative) RSV RNA Qual (PCR) NEGATIVE (Negative) SARS-CoV-2 RNA (RT-PCR) NEGATIVE (Negative) Independent Interpretation I performed an independent interpretation of an: EKG Interpretation: EKG at 00:40 shows sinus tachycardia at 101 beats per minute. There are nonspecific ST and T-wave changes of uncertain significance. Discharge Plan Discharge Clinical Impression: Chest pressure Patient Disposition: Home, Self-Care Additional Instructions: Please rest tonight. Continue your regular medications. Please plan on following up with your regular doctor to discuss this episode further. If at any point you feel any significant worsening shortness of breath or worsening pain with breathing please return to the emergency room for additional evaluation. Prescriptions: No Action albuterol sulfate [Ventolin HFA] 90 mcg/actuation HFA aerosol inhaler 2 puff INHALATION QID PRN (Reason: asthma) multivitamin Tablet 1 tab PO DAILY nitrofurantoin monohyd/m-cryst [Macrobid] 100 mg capsule 100 mg PO BID Qty: 6 0RF Rx Instructions: must administer with a meal/food docusate sodium [Colace] 100 mg capsule 100 mg PO BID PRN (Reason: constipation) Qty: 30 0RF Referrals: Geraldine Reyes MD [Primary Care Provider, Internal Medicine] Interventions: ED Discharge Assessment Last Done: 03/31/25 05:28 Discharge Date/Time: 03/31/25 05:48 Print Language: Albanian
[2025-03-31 01:09] LABS: MANUAL DIFF FLAG NO
[2025-03-31 01:10] LABS: Hematocrit 41.8 % (37.0-47.0); Hemoglobin 13.7 g/dl (12.0-16.0); Imm Gran Abs Auto 0.06 X10*3/uL (0.00-0.03); Imm Gran Pct Auto 0.6 % (0.0-0.4); Lymphocytes Absolute Auto 2.5 X10*3/uL (1.2-4.9); Mean Corpuscular HGB Conc 32.8 g/dl (31.0-35.0); Mean Corpuscular Hemoglobin 26.6 pg (27.0-33.0); Mean Corpuscular Volume 81.0 fL (80.0-98.0); NRBC Abs Auto 0.000 X10*3/uL (0.0-0.012); NRBC Pct Auto 0.0 /100WBC (0.0-0.2); Platelet Count 260 X10*3/uL (160-400); Red Blood Count 5.16 X10*6/uL (4.20-5.50); White Blood Count 9.8 X10*3/uL (4.8-10.8)
--- OUTSIDE RECORDS SUMMARY | 2025-03-31 01:23 | XMS_ITS | Encounter Summary ---
Author Organization [facility] Address [address] [place] [phone] Phone Care Team Providers Care Weld Engineer Name Role Phone Madhuri Martinez MD Primary Care Provider Unavailabl e Encounter Details Date Type Department Care Team (Late st Contact Info) Description 10/24/2011 Documentation EM Family Medicine [address] [place] [address] Family Medicine, Physician [address], [place] [address] Social History Tobacco Use Types Packs/Day Years [...] on filedocumented in this encounter Care Teams Weld Engineer Relationship Specialty Start Date End Date Madhuri Martinez MD PCP - General 12/07/16 documented as of this encounter
--- OUTSIDE RECORDS SUMMARY | 2025-03-31 01:24 | XMS_ITS | Clinical Summary ---
Author Organization [facility] Address [address] [place] [address] Phone Care Team Providers Care Senior Web Designer Name Role Phone Madhuri Martinez MD Primary [...] complete this topic Procedures * Due to [place] RECOMY.COM law, this organization might not be sharing sensitive test results. Procedure Name Priority Date/Time Associated Diagnosis Comments CHLAMYDIA AND GONORRHEA, AMPLIFIED Routine 10/05/2013 2:21 PM EDT from Last 3 Months or Most Recently Relevant to Health Maintenance Results * Due to [place] RECOMY.COM law, this organization might not be sharing sensitive test results. * Chlamydia and Gonorrhoea, Amplified (10/05/2013 2:21 PM EDT) [facility] URINE GC AMP PROBE NEGATIVE [facility] Comment: NO NEISSERIA GONORRHOEAE RNA DETECTED IN THIS PATIENT'S SAMPLE. (REFERENCE RANGE/NORMAL VALUE: NOT DETECTED) NOTE: This test uses director hardware-mediated amplification method to detect rRNA from C.Trachomatis [...] without risk of sexual abuse. Consult the [facility] if needed. Contact phone number . Therapeutic failure or success cannot be determined with the Aptima Combo2 assay since nucleic acid may persist following appropriate antimicrobial therapy. The Centers for Disease Control and Prevention (CDC) recommends confirmatory retesting using culture or a different nucleic acid amplification test when positive results occur, if indicated. Testing performed or reported by [facility], a Service of [facility], [address] [place] [address] Darell Morgan, Emergency Response Technician URINE CHLAMYDIA AMP PROBE NEGATIVE [facility] Comment: NO CHLAMYDIA TRACHOMATIS RNA DETECTED IN THIS PATIENT'S SAMPLE. (REFERENCE RANGE/NORMAL VALUE: NOT DETECTED) 10/05/2013 2:21 PM EDT Narrative [facility] - 10/05/2013 2:21 PM EDT URINE CHLAMYDIA GC AMP PROBE us Yunier Oviedo MD LAB MICROBIOLOGY - GENERAL ORDER SVETLANA Final Result [facility] [address] [place] [address], from Last 3 Months or Most Recently Relevant to Health Maintenance Care Teams Senior Web Designer Relationship Specialty Start Date End Date Madhuri Martinez MD PCP - General 12/07/16
--- OUTSIDE RECORDS SUMMARY | 2025-03-31 01:24 | XMS_ITS | Encounter Summary ---
Author Organization [facility] Address [address] [place] [phone] Phone Care Team Providers Care Handcrew Foreman Name Role Phone Madhuri Martinez MD Primary Care Provider Unavailabl e Encounter Details Date Type Department Care Team (Late st Contact Info) Description 10/05/2013 Documentation EM Family Medicine [address] [place] [address] Family Medicine, Physician [facility] [place], [place] [address] Social History Tobacco Use Types Packs/Day Years [...] on filedocumented in this encounter Care Teams Handcrew Foreman Relationship Specialty Start Date End Date Madhuri Martinez MD PCP - General 12/07/16 documented as of this encounter
--- OUTSIDE RECORDS SUMMARY | 2025-03-31 01:24 | XMS_ITS | Encounter Summary ---
Author Organization [facility] Address [address] [place] [address] Phone Care Team Providers Care Student Worker Name Role Phone Madhuri Martinez MD Primary Care Provider Unavailabl e Encounter Details Date Type Department Care Team (Late st Contact Info) Description 12/13/2016 Conversion Encounter [facility] - [address] [address] Social History Tobacco Use Types Packs/Day Years [...] on filedocumented in this encounter Care Teams Student Worker Relationship Specialty Start Date End Date Madhuri Martinez MD PCP - General 12/07/16 documented as of this encounter
--- OUTSIDE RECORDS SUMMARY | 2025-03-31 01:24 | XMS_ITS | Encounter Summary ---
Author Organization [facility] Address [address] [place] [phone] Phone Care Team Providers Care Wind Turbine Performance Engineer Name Role Phone Madhuri Martinez MD Primary Care Provider Unavailabl e Encounter Details Date Type Department Care Team (Late st Contact Info) Description 10/27/2013 Documentation EM Family Medicine [address] [place] [address] Family Medicine, Physician [address] [place], [place] [address] Social History Tobacco Use Types Packs/Day Years [...] on filedocumented in this encounter Care Teams Wind Turbine Performance Engineer Relationship Specialty Start Date End Date Madhuri Martinez MD PCP - General 12/07/16 documented as of this encounter
[2025-03-31 01:25] LABS: Anion Gap 16 (12-20); Blood Urea Nitrogen 14 mg/dL (9-16); Calcium 9.4 mg/dL (8.4-10.2); Carbon Dioxide 22 mmol/L (22-29); Chloride 109 mmol/L (96-108); Creatinine Clr Calc Pharmacy 71.6; Estimated Glomerular Filt Rate 49; Potassium 3.4 mmol/L (3.3-5.1); Sodium 144 mmol/L (135-145)
[2025-03-31 01:48] LABS: Resp Syncy Virus RNA Qual PCR NEGATIVE (Negative); SARS COV2 PCR INHOUSE NEGATIVE (Negative)
[2025-03-31 01:50] LABS: Troponin-I High Sensitivity < 2.7 ng/L (<3.5-17.0)
[2025-03-31 03:29] VITALS: BP 125/59; PULSE 81; RESP 18; O2SAT 100
[2025-03-31 05:28] VITALS: BP 124/62; PULSE 80; RESP 14; TEMP 36.9; O2SAT 97
== END 2025-03-31 05:48 | disposition home or self-care (01) ==
PROVIDERS: Student in an Organized Health Care Education/Training Program; Emergency Provider Emergency Medicine; PCP Internal Medicine
DX: R07.9 Chest pain, unspecified (principal); R00.0 Tachycardia, unspecified; J45.909 Unspecified asthma, uncomplicated; Z79.51 Long term (current) use of inhaled steroids; Z03.818 Encounter for observation for suspected exposure to other biological agents ruled out
CPT/HCPCS: 71046; 80048; 84484; 85025; 87637; 93005; 99283; 99285

== ENCOUNTER → 2025-03-31 00:38 | Outpatient (BNV) | payer MEDICAID, SELFPAY | PROVIDERS: Emergency Provider Emergency Medicine; PCP Internal Medicine; Visit Provider Internal Medicine | DX: R00.0 Tachycardia, unspecified (principal) | CPT/HCPCS: 93010 ==

== ENCOUNTER → 2025-03-31 00:52 | Outpatient (BNV) | payer MEDICAID, SELFPAY | PROVIDERS: PCP Internal Medicine; Visit Provider Student in an Organized Health Care Education/Training Program | DX: R07.9 Chest pain, unspecified (principal) | CPT/HCPCS: 71046 ==

== ENCOUNTER 2025-04-02 13:32 | Outpatient (REF) | payer MEDICAID, SELFPAY ==
[2025-04-02 13:50] LABS: MANUAL DIFF FLAG NO
[2025-04-02 14:02] LABS: Hematocrit 39.8 % (37.0-47.0); Hemoglobin 12.7 g/dl (12.0-16.0); Imm Gran Abs Auto 0.07 X10*3/uL (0.00-0.03); Imm Gran Pct Auto 0.8 % (0.0-0.4); Lymphocytes Absolute Auto 2.4 X10*3/uL (1.2-4.9); Mean Corpuscular HGB Conc 31.9 g/dl (31.0-35.0); Mean Corpuscular Hemoglobin 26.2 pg (27.0-33.0); Mean Corpuscular Volume 82.2 fL (80.0-98.0); NRBC Abs Auto 0.000 X10*3/uL (0.0-0.012); NRBC Pct Auto 0.0 /100WBC (0.0-0.2); Platelet Count 259 X10*3/uL (160-400); Red Blood Count 4.84 X10*6/uL (4.20-5.50); White Blood Count 8.3 X10*3/uL (4.8-10.8)
[2025-04-02 17:14] LABS: Protein/Creatinine Ratio, Ur 0.30 (<0.2); Total Protein Urine Random 48 mg/dL (<12)
--- OUTSIDE RECORDS SUMMARY | 2025-04-02 17:41 | XMS_ITS | Encounter Summary ---
Author Organization [facility] Address [address] [place] [address] Phone Care Team Providers Care Admissions Officer Name Role Phone Madhuri Martinez MD Primary Care Provider Unavailabl e Encounter Details Date Type Department Care Team (Late st Contact Info) Description 12/13/2016 Conversion Encounter [facility] - [address] [address] Social History Tobacco Use Types Packs/Day Years [...] on filedocumented in this encounter Care Teams Admissions Officer Relationship Specialty Start Date End Date Madhuri Martinez MD PCP - General 12/07/16 documented as of this encounter
--- OUTSIDE RECORDS SUMMARY | 2025-04-02 17:41 | XMS_ITS | Encounter Summary ---
Author Organization [facility] Address [address] [place] [phone] Phone Care Team Providers Care Production Grip Name Role Phone Madhuri Martinez MD Primary Care Provider Unavailabl e Encounter Details Date Type Department Care Team (Late st Contact Info) Description 10/24/2011 Documentation EM Family Medicine [address] [place] [address] Family Medicine, Physician [address] [place], [place] [address] Social History Tobacco Use Types Packs/Day Years [...] on filedocumented in this encounter Care Teams Production Grip Relationship Specialty Start Date End Date Madhuri Martinez MD PCP - General 12/07/16 documented as of this encounter
--- OUTSIDE RECORDS SUMMARY | 2025-04-02 17:41 | XMS_ITS | Encounter Summary ---
Author Organization [facility] Address [address] [place] [phone] Phone Care Team Providers Care Waterworks Employee Name Role Phone Madhuri Martinez MD Primary Care Provider Unavailabl e Encounter Details Date Type Department Care Team (Late st Contact Info) Description 10/27/2013 Documentation EM Family Medicine [address] [place] [address] Family Medicine, Physician [address], [place] [id number] Social History Tobacco Use Types Packs/Day Years [...] on filedocumented in this encounter Care Teams Waterworks Employee Relationship Specialty Start Date End Date Madhuri Martinez MD PCP - General 12/07/16 documented as of this encounter
--- OUTSIDE RECORDS SUMMARY | 2025-04-02 17:41 | XMS_ITS | Encounter Summary ---
Author Organization [facility] Address [address] [place] [phone] Phone Care Team Providers Care Avionics Systems Engineer Name Role Phone Madhuri Martinez MD Primary Care Provider Unavailabl e Encounter Details Date Type Department Care Team (Late st Contact Info) Description 10/05/2013 Documentation EM Family Medicine [address] [place] [address] Family Medicine, Physician [facility] [place], [place] [phone] Social History Tobacco Use Types Packs/Day Years [...] on filedocumented in this encounter Care Teams Avionics Systems Engineer Relationship Specialty Start Date End Date Madhuri Martinez MD PCP - General 12/07/16 documented as of this encounter
--- OUTSIDE RECORDS SUMMARY | 2025-04-02 17:41 | XMS_ITS | Clinical Summary ---
Author Organization [facility] Address [address] [place] [phone] Phone Care Team Providers Care Metal Template Maker Name Role Phone Madhuri Martinez MD Primary [...] complete this topic Procedures * Due to [place] [employer] law, this organization might not be sharing sensitive test results. Procedure Name Priority Date/Time Associated Diagnosis Comments CHLAMYDIA AND GONORRHEA, AMPLIFIED Routine 10/05/2013 2:21 PM EDT from Last 3 Months or Most Recently Relevant to Health Maintenance Results * Due to [place] [employer] law, this organization might not be sharing sensitive test results. * Chlamydia and Gonorrhoea, Amplified (10/05/2013 2:21 PM EDT) [facility] URINE GC AMP PROBE NEGATIVE [facility] Comment: NO NEISSERIA GONORRHOEAE RNA DETECTED IN THIS PATIENT'S SAMPLE. (REFERENCE RANGE/NORMAL VALUE: NOT DETECTED) NOTE: This test uses media supervisor-mediated amplification method to detect rRNA from C.Trachomatis [...] without risk of sexual abuse. Consult the [facility] if needed. Contact phone number . Therapeutic failure or success cannot be determined with the Aptima Combo2 assay since nucleic acid may persist following appropriate antimicrobial therapy. The Centers for Disease Control and Prevention (CDC) recommends confirmatory retesting using culture or a different nucleic acid amplification test when positive results occur, if indicated. Testing performed or reported by [facility], a Service of [facility], [address] [place] [address] Darell Morgan, Clinical Laboratory Science Professor URINE CHLAMYDIA AMP PROBE NEGATIVE [facility] Comment: NO CHLAMYDIA TRACHOMATIS RNA DETECTED IN THIS PATIENT'S SAMPLE. (REFERENCE RANGE/NORMAL VALUE: NOT DETECTED) 10/05/2013 2:21 PM EDT Narrative [facility] - 10/05/2013 2:21 PM EDT URINE CHLAMYDIA GC AMP PROBE us Yunier Oviedo MD LAB MICROBIOLOGY - GENERAL ORDER SVETLANA Final Result [facility] [address] [place] [address], from Last 3 Months or Most Recently Relevant to Health Maintenance Care Teams Metal Template Maker Relationship Specialty Start Date End Date Madhuri Martinez MD PCP - General 12/07/16
[2025-04-02 18:32] LABS: Alanine Aminotransferase 13 U/L (0-31); Albumin Level 4.1 g/dL (3.5-5.0); Alkaline Phosphatase 63 U/L (39-117); Anion Gap 10 (12-20); Aspartate Amino Transferase 23 U/L (5-31); Blood Urea Nitrogen 13 mg/dL (9-16); Calcium 8.9 mg/dL (8.4-10.2); Carbon Dioxide 25 mmol/L (22-29); Chloride 112 mmol/L (96-108); Cholesterol 191 mg/dL (<200); Estimated Glomerular Filt Rate > 60; HDL Cholesterol 41 mg/dL (>40); Potassium 3.5 mmol/L (3.3-5.1); Sodium 143 mmol/L (135-145); Total Protein 7.3 g/dL (6.5-8.0); Triglycerides 171 mg/dL (<150)
[2025-04-02 18:54] LABS: Thyroid Stimulating Hormone 1.27 uIU/mL (0.32-4.0)
== END 2025-04-02 13:33 | disposition home or self-care (01) ==
LOC: HO.LAB 13:32
PROVIDERS: PCP Internal Medicine; Visit Provider Internal Medicine
DX: Z00.00 Encounter for general adult medical examination without abnormal findings (principal); I10 Essential (primary) hypertension; J45.909 Unspecified asthma, uncomplicated; Z68.41 Body mass index [BMI] 40.0-44.9, adult
CPT/HCPCS: 36415; 80053; 80061; 82570; 84156; 84443; 85025